=== PATIENT | male | born 1965 | race Caucasian/White ===

== ENCOUNTER 2021-03-13 10:06 | Emergency (ER) | payer OTHER, SELFPAY ==
[2021-03-13 10:10] VITALS: BP 190/90; PULSE 63; RESP 16; TEMP 36.7; O2SAT 96; BMI 35.6
[2021-03-13] MEDS: PROPARACAINE 0.5% OPHTH SOL 1 DROPS EYE-BOTH (10:40)
[2021-03-13] MEDS: FLUORESCEIN 1 MG STRIP EYE-LEFT (10:40)
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
[2021-03-13 12:03] VITALS: BP 144/86; PULSE 60; RESP 16; O2SAT 99
[2021-03-13] MEDS: OFLOXACIN 0.3% OPHTH 5 ML 1 DROPS EYE-RIGHT (12:04)
== END 2021-03-13 12:18 | disposition home or self-care (01) ==
PROVIDERS: Emergency Provider Emergency Medicine
DX: S05.01XA Injury of conjunctiva and corneal abrasion without foreign body, right eye, initial encounter (principal); W22.8XXA Striking against or struck by other objects, initial encounter
CPT/HCPCS: 99282

== ENCOUNTER 2021-06-22 10:21 | Emergency (ER) | payer OTHER, SELFPAY ==
[2021-06-22 10:48] VITALS: BP 187/94; PULSE 61; RESP 18; TEMP 36.4; O2SAT 96; BMI 37.3
[2021-06-22 11:00] VITALS: BP 161/88; PULSE 58; RESP 16; O2SAT 97
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
[2021-06-22 11:18] LABS: Add Manual Diff / Slide Review NO; Basophils Absolute Auto 100 /uL (0-100); Basophils Percent Auto 1.8 % (0-2); Eosinophils Absolute Auto 100 /uL (0-450); Eosinophils Percent Auto 2.1 % (2-4); Hematocrit 46.6 % (41-53); Hemoglobin 15.7 g/dL (13.5-17.5); Lymphocytes Absolute Auto 1600 /uL (1100-4500); Lymphocytes Percent Auto 23.3 % (25-40); Mean Corpuscular HGB Conc 33.6 % (30-36); Mean Corpuscular Hemoglobin 28.7 PG (26-34); Mean Corpuscular Volume 85.3 fL (80-100); Monocytes Absolute Auto 400 /uL (0-900); Monocytes Percent Auto 6.4 % (3-14); Neutrophils Absolute Auto 4600 /uL (1500-7000); Neutrophils Percent Auto 66.4 % (50-75); Platelet Count 196 X10^3/uL (150-400); Red Blood Cell Count 5.47 X10^6/uL (4.5-5.9); Red Cell Distribution Width 13.5 % (11.6-14.8); White Blood Cell Count 6.9 X10^3/uL (4.5-11.0)
[2021-06-22 11:25] LABS: Alanine Aminotransferase 55 IU/L (<50); Albumin 4.6 g/dL (3.5-5.0); Albumin Globulin Ratio 1.6 (1.0-2.8); Alkaline Phosphatase 82 U/L (38-126); Aspartate Aminotransferase 46 IU/L (17-59); BUN Creatinine Ratio 14.3 (6-22); Bilirubin Total 1.4 mg/dL (0.2-1.3); Blood Urea Nitrogen 10 mg/dL (9-20); Calcium 9.5 mg/dL (8.4-10.2); Carbon Dioxide 23 mmol/L (22-32); Chloride 100 mmol/L (98-107); Estimated Glomerular Filt Rate > 60.0 mL/min (>60); Globulin 2.8 g/dL (1.7-4.1); Glucose 200 mg/dL (70-100); HEMOLYSIS < 15 (0-50); Lipase 621 U/L (23-300); Potassium 4.5 mmol/L (3.4-5.1); Sodium 135 mmol/L (137-145); Total Protein 7.4 g/dL (6.3-8.2)
[2021-06-22 11:33] VITALS: BP 167/93; PULSE 62; RESP 16; O2SAT 98
--- NOTE | 2021-06-22 11:48 | DI.CT.S_ITS ---
PROCEDURE: CT ABDOMEN PELVIS WO CON INDICATIONS: right lower quad pain TECHNIQUE: Axial sections were acquired from the lung bases to the pubic symphysis. Coronal and sagittal reformats were performed. For radiation dose reduction, the following was used: automated exposure control, adjustment of mA and/or kV according to patient size. COMPARISON: None. FINDINGS: Image quality: Excellent. Lung bases: Unremarkable. Heart: No significant findings. URINARY: Right Kidney: No stones or hydronephrosis. Right Ureter: No hydroureter. Left Kidney: No stones or hydronephrosis. Left Ureter: No hydroureter. Bladder: Normal wall thickness. No stones. ABDOMEN: Liver: Diffusely hypoattenuating appearance of the liver is consistent with fatty infiltration. The liver is enlarged and measures up to 20.3 cm in craniocaudal dimension. Gallbladder: A tiny calcified gallstone is seen in the dependent portion of the gallbladder. No signs of acute cholecystitis. Biliary ducts: Unremarkable. Pancreas: Unremarkable. Spleen: Unremarkable. Adrenal Glands: Unremarkable. Stomach and Bowel: Stomach, small bowel loops, and colon are unremarkable. Normal appendix. Peritoneum: No abnormal intraperitoneal fluid. No free air. Ventral Wall: A tiny fat containing periumbilical hernia is present. Abdominal Nodes: No enlarged retroperitoneal or mesenteric lymph nodes. Vessels: Aorta and inferior vena cava are normal in size. Mild aortic atherosclerotic calcifications. PELVIS: Pelvic Organs: Unremarkable. Pelvic Nodes: Unremarkable. Miscellaneous: There is a small fat containing left inguinal hernia. Bones: Degenerative changes are seen in the hips bilaterally and there are mild degenerative changes in the lumbar spine. IMPRESSION: 1. No acute abnormality is identified in the abdomen or pelvis. Normal appendix. 2. Cholelithiasis. 3. Hepatomegaly and diffuse hepatic steatosis. 4. Small fat containing left inguinal hernia. Dictated by: Abraham Lofton M.D. on 06/22/2021 at 12:05 Approved by: Abraham Lofton M.D. on 06/22/2021 at 12:13
[2021-06-22 11:54] LABS: Bacteria Urine None Seen; Culture Indicated Urine Cult Not Indicated; RBC Urine None Seen (0-5/HPF); Squamous Epithelial Cell Urine None Seen (0-5/HPF); WBC Urine 0-1/HPF (0-5/HPF)
[2021-06-22 12:15] VITALS: BP 160/89; PULSE 60; RESP 18; O2SAT 99
[2021-06-22 13:17] VITALS: BP 153/62; PULSE 70; RESP 18; O2SAT 96
== END 2021-06-22 13:17 | disposition home or self-care (01) ==
PROVIDERS: Emergency Provider Emergency Medicine
DX: R10.31 Right lower quadrant pain (principal); R00.2 Palpitations
CPT/HCPCS: 36415; 74176; 80053; 81003; 81015; 83690; 85025; 93005; 93010; 96374; 96375; 99284; Q9967

== ENCOUNTER 2021-10-29 08:51 | Emergency (ER) | payer OTHER, SELFPAY ==
[2021-10-29 08:58] VITALS: BP 183/90; PULSE 58; RESP 12; TEMP 36.5; O2SAT 100; BMI 35.2
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
--- NOTE | 2021-10-29 11:32 | DI.CT.S_ITS ---
PROCEDURE: CT HEAD/BRAIN WO CON INDICATIONS: Left frontal/temporal concepcion x 1month, worsening TECHNIQUE: Noncontrast 4.5 mm thick angled axial sections acquired from the foramen magnum to the vertex, with coronal and sagittal reformats. For radiation dose reduction, the following was used: automated exposure control, adjustment of mA and/or kV according to patient size. COMPARISON: None. FINDINGS: Image quality: Excellent. CSF spaces: Basal cisterns are patent. No extra-axial fluid collections. The ventricles are symmetric in size and shape. Brain: No intracranial bleeds or masses. There is cerebral volume loss for age, with resultant ventricular and sulcal prominence. There are periventricular and deep white matter chronic small vessel ischemic changes. There is intracranial internal carotid artery and vertebral artery atherosclerosis. Skull and face: Calvarium and visualized facial bones appear intact, without suspicious lesions. Sinuses: Visualized sinuses and mastoids are clear. IMPRESSION: No acute intracranial disease process. Dictated by: lIiana Bill MD, PhD on 10/29/2021 at 11:54 Approved by: Iliana Bill MD, PhD on 10/29/2021 at 11:56
[2021-10-29 11:48] VITALS: BP 170/91; PULSE 54; RESP 16; O2SAT 99
[2021-10-29] MEDS: SODIUM CHLORIDE 0.9% 1,000 ML 1000 ML IV (12:00)
[2021-10-29 12:18] LABS: Add Manual Diff / Slide Review NO; Basophils Absolute Auto 100 /uL (0-100); Basophils Percent Auto 1.4 % (0-2); Eosinophils Absolute Auto 100 /uL (0-450); Hemoglobin 14.4 g/dL (13.5-17.5); Lymphocytes Absolute Auto 1500 /uL (1100-4500); Lymphocytes Percent Auto 28.9 % (25-40); Mean Corpuscular HGB Conc 34.4 % (30-36); Mean Corpuscular Hemoglobin 28.8 PG (26-34); Mean Corpuscular Volume 83.9 fL (80-100); Monocytes Absolute Auto 400 /uL (0-900); Monocytes Percent Auto 8.6 % (3-14); Neutrophils Absolute Auto 3000 /uL (1500-7000); Neutrophils Percent Auto 59.1 % (50-75); Platelet Count 158 X10^3/uL (150-400); Red Cell Distribution Width 13.4 % (11.6-14.8); White Blood Cell Count 5.1 X10^3/uL (4.5-11.0)
[2021-10-29 12:30] LABS: Alanine Aminotransferase 46 IU/L (<50); Albumin 4.1 g/dL (3.5-5.0); Albumin Globulin Ratio 1.5 (1.0-2.8); Alkaline Phosphatase 75 U/L (38-126); Aspartate Aminotransferase 38 IU/L (17-59); BUN Creatinine Ratio 13.4 (6-22); Bilirubin Total 1.1 mg/dL (0.2-1.3); Blood Urea Nitrogen 9 mg/dL (9-20); Calcium 9.2 mg/dL (8.4-10.2); Carbon Dioxide 28 mmol/L (22-32); Chloride 103 mmol/L (98-107); Estimated Glomerular Filt Rate > 60.0 mL/min (>60); Globulin 2.7 g/dL (1.7-4.1); Glucose 206 mg/dL (70-100); HEMOLYSIS 17 (0-50); Potassium 4.5 mmol/L (3.4-5.1); Sodium 136 mmol/L (137-145); Total Protein 6.8 g/dL (6.3-8.2)
[2021-10-29 12:32] LABS: C-Reactive Protein Quant < 0.5 mg/dL (<1.0)
[2021-10-29 12:37] LABS: Erythrocyte Sedimentation Rate 32 MM/HR (0-15)
[2021-10-29 13:06] VITALS: O2SAT 98
[2021-10-29 13:07] VITALS: BP 168/92; O2SAT 99
[2021-10-29 14:18] VITALS: BP 183/92
[2021-10-29 14:19] VITALS: PULSE 53; RESP 16; O2SAT 95
--- NOTE | 2021-11-13 13:26 | PC.NURSE ---
pt called asking for us to extend his prednisone prescription. I let him know we don't usually do refills had he tried to call the surgeon he had just seen or his pcp. said he can't be seen by his pcp for 2 days and coming off this high dose i'm really fucked up and you're no help and then he hung up on me. I will notify dr. ramos.
--- NOTE | 2021-11-13 14:32 | PC.NURSE ---
Dr ramos was able to review the chart and sent a prescription of prednisone to the [facility].
== END 2021-10-29 14:28 | disposition home or self-care (01) ==
PROVIDERS: Emergency Provider Emergency Medicine
DX: R51.9 Headache, unspecified (principal); M31.6 Other giant cell arteritis
CPT/HCPCS: 36415; 70450; 80053; 81003; 85025; 85651; 86140; 96360; 99284

== ENCOUNTER 2022-04-08 05:29 | Emergency (ER) | payer OTHER, SELFPAY ==
[2022-04-08] VITALS (9 sets, daily range): BP systolic 165–215; BP diastolic 74–106; PULSE 46–53; RESP 18–20; TEMP 36.2; O2SAT 98–99; BMI 37.2
[2022-04-08 06:43] LABS: Add Manual Diff / Slide Review NO; Basophils Absolute Auto 0 /uL (0-100); Basophils Percent Auto 0.8 % (0-2); Eosinophils Absolute Auto 200 /uL (0-450); Eosinophils Percent Auto 3.8 % (2-4); Hematocrit 40.8 % (41-53); Hemoglobin 13.8 g/dL (13.5-17.5); Lymphocytes Absolute Auto 1800 /uL (1100-4500); Lymphocytes Percent Auto 29.8 % (25-40); Mean Corpuscular HGB Conc 33.7 % (30-36); Monocytes Absolute Auto 500 /uL (0-900); Monocytes Percent Auto 8.3 % (3-14); Neutrophils Absolute Auto 3400 /uL (1500-7000); Neutrophils Percent Auto 57.3 % (50-75); Platelet Count 177 X10^3/uL (150-400); Red Blood Cell Count 4.74 X10^6/uL (4.5-5.9); Red Cell Distribution Width 13.4 % (11.6-14.8)
[2022-04-08 06:49] LABS: Alanine Aminotransferase 28 IU/L (<50); Albumin Globulin Ratio 1.4 (1.0-2.8); Alkaline Phosphatase 69 U/L (38-126); Aspartate Aminotransferase 24 IU/L (17-59); BUN Creatinine Ratio 10.8 (6-22); Blood Urea Nitrogen 8 mg/dL (9-20); Calcium 8.9 mg/dL (8.4-10.2); Carbon Dioxide 25 mmol/L (22-32); Chloride 105 mmol/L (98-107); Estimated Glomerular Filt Rate > 60 mL/min (>60); Globulin 2.8 g/dL (1.7-4.1); Glucose 195 mg/dL (70-100); HEMOLYSIS < 15 (0-50); Lipase 1328 U/L (23-300); Potassium 3.9 mmol/L (3.4-5.1); Sodium 138 mmol/L (137-145); Total Protein 6.8 g/dL (6.3-8.2)
--- NOTE | 2022-04-08 06:53 | DI.CT.S_ITS ---
PROCEDURE: CT ABDOMEN PELVIS WO CON INDICATIONS: Right flank pain, pancreatitis TECHNIQUE: Axial sections were acquired from the lung bases to the pubic symphysis. Coronal and sagittal reformats were performed. For radiation dose reduction, the following was used: automated exposure control, adjustment of mA and/or kV according to patient size. COMPARISON: [facility], CT, CT ABDOMEN PELVIS WO CON, 06/22/2021, 11:50. FINDINGS: Image quality: Excellent. Lung bases: Lung bases are clear. Small hiatal hernia. Heart: Heart size is normal. Moderate coronary artery calcification. URINARY: Right Kidney: No stones or hydronephrosis. Mild nonspecific perinephric stranding. Right Ureter: No hydroureter. Left Kidney: No stones or hydronephrosis. Mild non-specific perinephric stranding. Left Ureter: No hydroureter. Bladder: Normal wall thickness. No stones. ABDOMEN: Liver: Liver is enlarged. There is moderate hepatic steatosis. Gallbladder: There are gallstone. Gallbladder is mildly distended. No pericholecystic fluid collection. Biliary ducts: Unremarkable. Pancreas: Unremarkable. No pancreatic stranding, pancreatic duct dilation, pancreatic stranding or pseudocysts. Spleen: Unremarkable. Adrenal Glands: Unremarkable. Stomach and Bowel: Stomach, small bowel loops, and colon are normal in caliber. Appendix is normal. Moderate amount of stool in colon. Diverticulosis without diverticulitis. Peritoneum: No abnormal intraperitoneal fluid. No free air. Ventral Wall: No hernia. Abdominal Nodes: No enlarged retroperitoneal or mesenteric lymph nodes. Mesenteric stranding. Vessels: Aorta and inferior vena cava are normal in size. PELVIS: Pelvic Organs: Unremarkable. Pelvic Nodes: Unremarkable. Miscellaneous: Small fat containing left inguinal. Bones: Unremarkable. IMPRESSION: 1. No renal stone or hydronephrosis. 2. Cholelithiasis. 3. Hepatomegaly and hepatic steatosis. 4. Normal CT appearance of pancreas, which does not exclude clinical pancreatitis. 5. Diverticulosis without diverticulitis. Dictated by: Derrick Hernandez M.D. on 04/08/2022 at 8:26 Approved by: Derrick Hernandez M.D. on 04/08/2022 at 8:48
--- NOTE | 2022-04-08 07:01 | ED.BACK ---
HPI - Back Pain/Injury <DO Xochitl Saini Last Filed: 04/12/22 06:54> General Chief Complaint: Back Pain/Injury Stated Complaint: right back side Time Seen by Provider: 04/08/22 07:06 Source: patient History of Present Illness HPI Narrative: Patient is a 56-year-old male with history of type 2 diabetes presenting with right upper quadrant pain. This with ongoing for the last 6 weeks. He said it started when he was patient between 2 things however it has continued he has been taking Tylenol and ibuprofen at home which has been working in till last night. Patient thinks it might be his gallbladder. He has not had any nausea or vomiting. He went to the walk-in clinic last week and was told it could possibly be his gallbladder. Related Data Home Medications Medication Instructions Recorded Confirmed metformin 500 mg tablet,extended 500 mg PO 06/22/21 03/25/22 release 24 hr Previous Rx's Medication Instructions Recorded prednisone 20 mg tablet 60 mg PO DAILY #42 tabs 10/29/21 prednisone 20 mg tablet 40 mg PO DAILY #14 tabs 11/13/21 prednisone 50 mg tablet 50 mg PO DAILY #7 tabs 11/13/21 Allergies Allergy/AdvReac Type Severity Reaction Status Date / Time aspirin Allergy Severe Anaphylaxis Verified 04/08/22 05:49 Iodinated Contrast Media Allergy Severe Fever Verified 04/08/22 05:49 tetanus and diphtheria AdvReac Severe Fever Verified 04/08/22 05:49 toxoids Review of Systems <DO Xochitl Saini Filed: 04/12/22 06:54> Review of Systems Narrative: GENERAL: Denies chills, fatigue, malaise, fever, sweats, travel HEENT: Denies sinus pain, ear pain, sore throat, difficulty swallowing, neck pain RESPIRATORY: Denies dyspnea, cough, wheezing, hemoptysis, sputum. CARDIOVASCULAR: Denies chest pain, palpitations, orthopnea, edema GASTROINTESTINAL: See HPI : Denies dysuria, frequency, incontinence, hematuria, urinary retention, flank pain. MUSCULOSKELETAL: Denies weakness, joint pain, or bony pain SKIN: No rash, no erythema, no pruritus NEUROLOGIC: Denies weakness, dizziness, headache, numbness, change in speech, confusion PSYCHIATRIC: No concerning psychosocial issues. 12 point review of systems is negative except for those stated above and HPI Patient History <DO Xochitl Saini Last Filed: 04/12/22 06:54> Social History Smoking Status: Never smoker Smoking Status: Never smoker alcohol intake frequency: holidays/special occasions only Substance Use Type: does not use Exam <DO Xochitl Saini Last Filed: 04/12/22 06:54> Initial Vital Signs Initial Vital Signs: Vital Signs Temperature 97.2 F L 04/08/22 05:43 Pulse Rate 50 L 04/08/22 05:43 Respiratory Rate 20 04/08/22 05:43 Blood Pressure 195/95 H 04/08/22 05:43 Pulse Oximetry 99 04/08/22 05:43 Oxygen Delivery Method 04/08/22 05:43 GENERAL: Well-appearing 56 year old male HEENT: Head atraumatic,EOMI, pupils reactive, face symmetric, moist mucous membranes CARDIOVASCULAR: Regular rate and rhythm without murmurs, rubs or gallops. RESPIRATORY: Breath sounds equal bilaterally, no wheezes rales or rhonchi. ABDOMEN: Soft, mild right upper quadrant pain no vertigo no rebound mild epigastric EXTREMITIES: Normal range of motion, no clubbing or edema. Neurovascularly intact NEUROLOGICAL: Alert and oriented x4.Normal gait and speech. SKIN: Warm, dry, no laceration, no petechiae, no rashes or lesions. <Maude Lopez DO - Last Filed: 04/12/22 08:23> Initial Vital Signs Initial Vital Signs: Vital Signs Temperature 97.2 F L 04/08/22 05:43 Pulse Rate 50 L 04/08/22 05:43 Respiratory Rate 20 04/08/22 05:43 Blood Pressure 195/95 H 04/08/22 05:43 Pulse Oximetry 99 04/08/22 05:43 Oxygen Delivery Method 04/08/22 05:43 Course <DO Xochitl Saini Last Filed: 04/12/22 06:54> Orders Ordered: ED Orders 04/08/22 05:52 EKG-12 Lead Stat 04/08/22 06:00 Complete Blood Count AUTO DIFF Stat Comprehensive Metabolic Panel Stat Lipase Stat Troponin & CK Cardiac Panel Stat 04/08/22 06:53 CT abdomen pelvis wo con Stat Vital Signs Vital signs: Vital Signs - 8 hr 04/08/22 05:43 04/08/22 06:37 04/08/22 06:38 Temperature 97.2 F L Pulse Rate 50 L 46 L 46 L Respiratory Rate 20 Blood Pressure 195/95 H Pulse Oximetry 99 98 98 Oxygen Delivery Method Room Air 04/08/22 06:38 04/08/22 07:00 04/08/22 07:01 Temperature Pulse Rate 50 L 49 L Respiratory Rate Blood Pressure 184/88 H Pulse Oximetry 98 99 Oxygen Delivery Method 04/08/22 07:01 04/08/22 07:16 04/08/22 07:16 Temperature Pulse Rate 49 L Respiratory Rate Blood Pressure 215/106 H 176/83 H Pulse Oximetry 99 Oxygen Delivery Method 04/08/22 07:30 04/08/22 07:30 04/08/22 08:00 Temperature Pulse Rate 52 L Respiratory Rate Blood Pressure 175/90 H 185/81 H Pulse Oximetry 98 Oxygen Delivery Method 04/08/22 08:00 04/08/22 10:02 Temperature Pulse Rate 53 L 51 L Respiratory Rate 18 Blood Pressure 165/74 H Pulse Oximetry 98 99 Oxygen Delivery Method Room Air <Maude Lopez, DO - Last Filed: 04/12/22 08:23> Orders Ordered: ED Orders 04/08/22 05:52 EKG-12 Lead Stat 04/08/22 06:00 Complete Blood Count AUTO DIFF Stat Comprehensive Metabolic Panel Stat Lipase Stat Troponin & CK Cardiac Panel Stat 04/08/22 06:53 CT abdomen pelvis wo con Stat Consultations Consultation #1: Dr. Cordova, general surgery. Case was reviewed. Labs and findings. Time: 11:50 Vital Signs Vital signs: Vital Signs - 8 hr 04/08/22 05:43 04/08/22 06:37 04/08/22 06:38 Temperature 97.2 F L Pulse Rate 50 L 46 L 46 L Respiratory Rate 20 Blood Pressure 195/95 H Pulse Oximetry 99 98 98 Oxygen Delivery Method Room Air 04/08/22 06:38 04/08/22 07:00 04/08/22 07:01 Temperature Pulse Rate 50 L 49 L Respiratory Rate Blood Pressure 184/88 H Pulse Oximetry 98 99 Oxygen Delivery Method 04/08/22 07:01 04/08/22 07:16 04/08/22 07:16 Temperature Pulse Rate 49 L Respiratory Rate Blood Pressure 215/106 H 176/83 H Pulse Oximetry 99 Oxygen Delivery Method 04/08/22 07:30 04/08/22 07:30 04/08/22 08:00 Temperature Pulse Rate 52 L Respiratory Rate Blood Pressure 175/90 H 185/81 H Pulse Oximetry 98 Oxygen Delivery Method 04/08/22 08:00 04/08/22 10:02 Temperature Pulse Rate 53 L 51 L Respiratory Rate 18 Blood Pressure 165/74 H Pulse Oximetry 98 99 Oxygen Delivery Method Room Air MDM - Back Pain/Injury <Lakeisha Giraldo, DO - Last Filed: 04/12/22 06:54> Lab Data Result diagrams: 04/08/22 06:00 04/08/22 06:00 Labs: Lab Results 04/08/22 04/08/22 04/08/22 Range/Units 06:00 06:00 06:00 WBC 6.0 (4.5-11.0) X10^3/uL RBC 4.74 (4.5-5.9) X10^6/uL Hgb 13.8 (13.5-17.5) g/dL Hct 40.8 L (41-53) % MCV 86.0 (80-100) fL MCH 29.0 (26-34) PG MCHC 33.7 (30-36) % RDW 13.4 (11.6-14.8) % Plt Count 177 (150-400) X10^3/uL Neut % (Auto) 57.3 (50-75) % Lymph % (Auto) 29.8 (25-40) % Chaves % (Auto) 8.3 (3-14) % Eos % (Auto) 3.8 (2-4) % Baso % (Auto) 0.8 (0-2) % Neut # (Auto) 3400 (1109-4392) /uL Lymph # (Auto) 1800 (7180-8348) /uL Chaves # (Auto) 500 (0-900) /uL Eos # (Auto) 200 (0-450) /uL Baso # (Auto) 0 (0-100) /uL Sodium 138 (137-145) mmol/L Potassium 3.9 (3.4-5.1) mmol/L Chloride 105 (98-107) mmol/L Carbon Dioxide 25 (22-32) mmol/L BUN 8 L (9-20) mg/dL Creatinine 0.74 (0.66-1.25) mg/dL Estimated GFR > 60 (>60) mL/min BUN/Creatinine Ratio 10.8 (6-22) Glucose 195 H (70-100) mg/dL Calcium 8.9 (8.4-10.2) mg/dL Total Bilirubin 1.0 (0.2-1.3) mg/dL AST 24 (17-59) IU/L ALT 28 (<50) IU/L Alkaline Phosphatase 69 (38-126) U/L Total Creatine Kinase 94 (55-170) U/L CK-MB (CK-2) TNP CK-MB (CK-2) Rel Index TNP Troponin I < 0.012 (0.01-0.034) ng/mL Total Protein 6.8 (6.3-8.2) g/dL Albumin 4.0 (3.5-5.0) g/dL Globulin 2.8 (1.7-4.1) g/dL Albumin/Globulin Ratio 1.4 (1.0-2.8) Lipase 1328 H (23-300) U/L Urine Dip Bedside Urine Glucose Negative Bedside Urine Bilirubin - Negative Bedside Urine Ketone - Negative Urine Specific [place] 1.015 Bedside Urine Occult Blood - Negative Bedside Urine pH 6.0 Bedside Urine Protein - Negative Bedside Urine Urobilinogen - Negative Bedside Urine Nitrite - Negative Bedside Urine Leukocytes - Negative Esterase ECG Data Interpretation: Normal sinus rhythm rate 47 ND interval 156/[address] changes no T-wave inversions <Maude Lopez, - Last Filed: 04/12/22 08:23> Lab Data Labs: Lab Results 04/08/22 04/08/22 04/08/22 Range/Units 06:00 06:00 06:00 WBC 6.0 (4.5-11.0) X10^3/uL RBC 4.74 (4.5-5.9) X10^6/uL Hgb 13.8 (13.5-17.5) g/dL Hct 40.8 L (41-53) % MCV 86.0 (80-100) fL MCH 29.0 (26-34) PG MCHC 33.7 (30-36) % RDW 13.4 (11.6-14.8) % Plt Count 177 (150-400) X10^3/uL Neut % (Auto) 57.3 (50-75) % Lymph % (Auto) 29.8 (25-40) % Chaves % (Auto) 8.3 (3-14) % Eos % (Auto) 3.8 (2-4) % Baso % (Auto) 0.8 (0-2) % Neut # (Auto) 3400 (7242-4266) /uL Lymph # (Auto) 1800 (3281-6620) /uL Chaves # (Auto) 500 (0-900) /uL Eos # (Auto) 200 (0-450) /uL Baso # (Auto) 0 (0-100) /uL Sodium 138 (137-145) mmol/L Potassium 3.9 (3.4-5.1) mmol/L Chloride 105 (98-107) mmol/L Carbon Dioxide 25 (22-32) mmol/L BUN 8 L (9-20) mg/dL Creatinine 0.74 (0.66-1.25) mg/dL Estimated GFR > 60 (>60) mL/min BUN/Creatinine Ratio 10.8 (6-22) Glucose 195 H (70-100) mg/dL Calcium 8.9 (8.4-10.2) mg/dL Total Bilirubin 1.0 (0.2-1.3) mg/dL AST 24 (17-59) IU/L ALT 28 (<50) IU/L Alkaline Phosphatase 69 (38-126) U/L Total Creatine Kinase 94 (55-170) U/L CK-MB (CK-2) TNP CK-MB (CK-2) Rel Index TNP Troponin I < 0.012 (0.01-0.034) ng/mL Total Protein 6.8 (6.3-8.2) g/dL Albumin 4.0 (3.5-5.0) g/dL Globulin 2.8 (1.7-4.1) g/dL Albumin/Globulin Ratio 1.4 (1.0-2.8) Lipase 1328 H (23-300) U/L Urine Dip Bedside Urine Glucose Negative Bedside Urine Bilirubin - Negative Bedside Urine Ketone - Negative Urine Specific [place] 1.015 Bedside Urine Occult Blood - Negative Bedside Urine pH 6.0 Bedside Urine Protein - Negative Bedside Urine Urobilinogen - Negative Bedside Urine Nitrite - Negative Bedside Urine Leukocytes - Negative Esterase Imaging Data CT scan - abdomen/pelvis: Radiologist's Impression: Close Abdomen/Pelvis CT (Signed) Yolanda Hernandezcelia - 04/08/22 Launch?Image [address] [address] [address] Scan Report Signed Patient: Jean Mendez MR#: [id number] : 1965 Acct:[id number] Age/Sex: 56 / M Date of Service: 04/08/22 Loc: ED Accession Number: [id number] ?? Procedure: CT abdomen pelvis wo con Ordering Provider: Lakeisha Giraldo D.O. PROCEDURE:? CT ABDOMEN PELVIS WO CON ? INDICATIONS:? Right flank pain, pancreatitis ? TECHNIQUE:? Axial sections were acquired from the lung bases to the pubic symphysis.? Coronal and sagittal reformats were performed.? For radiation dose reduction, the following was used: ?automated exposure control, adjustment of mA and/or kV according to patient size.? ? COMPARISON:? [facility], CT, CT ABDOMEN PELVIS WO CON, 06/22/2021, 11:50. ? FINDINGS:? Image quality:? Excellent.? ? Lung bases:? Lung bases are clear.? Small hiatal hernia. Heart:? Heart size is normal.? Moderate coronary artery calcification. ? URINARY: Right Kidney: ? No stones or hydronephrosis.? Mild nonspecific perinephric stranding. Right Ureter:? No hydroureter.? ? Left Kidney: ? No stones or hydronephrosis.? Mild non-specific perinephric stranding. Left Ureter:? No hydroureter.? ? Bladder:? Normal wall thickness. No stones. ? ? ? ABDOMEN: Liver:? Liver is enlarged.? There is moderate hepatic steatosis.? ? Gallbladder:? There are gallstone.? Gallbladder is mildly distended.? No pericholecystic fluid collection.? ? Biliary ducts:? Unremarkable.? ? Pancreas:? Unremarkable.? No pancreatic stranding, pancreatic duct dilation, pancreatic stranding or pseudocysts. Spleen:? Unremarkable.? ? Adrenal Glands:? Unremarkable.? ? ? Stomach and Bowel:? Stomach, small bowel loops, and colon are normal in caliber.? Appendix is normal.? Moderate amount of stool in colon.? Diverticulosis without diverticulitis. Peritoneum:? No abnormal intraperitoneal fluid.? No free air.? ? Ventral Wall: ? No hernia.? Abdominal Nodes:? No enlarged retroperitoneal or mesenteric lymph nodes.? Mesenteric stranding.? Vessels:? Aorta and inferior vena cava are normal in size.? ? PELVIS: Pelvic Organs:? Unremarkable.? ? Pelvic Nodes: Unremarkable. Miscellaneous:? Small fat containing left inguinal. ? ? ? Bones:? Unremarkable. ? IMPRESSION:? ? 1. No renal stone or hydronephrosis. 2. Cholelithiasis. 3. Hepatomegaly and hepatic steatosis. 4. Normal CT appearance of pancreas, which does not exclude clinical pancreatitis. 5. Diverticulosis without diverticulitis. ? ? ? Dictated by: Derrick Hernandez M.D. on 04/08/2022 at 8:26 ? ? Approved by: Derrick Hernandez M.D. on 04/08/2022 at 8:48?? MDM Narrative Medical decision making narrative: Jessica 04/08/22: Patient seen independently evaluated by myself. Signed out to myself by Dr. Giraldo. Labs show an elevated lipase, no significant changes to other LFTs. CBC and electrolytes otherwise normal, troponin negative. CT abdomen pelvis shows cholelithiasis, moderate distention, no other changes no pancreatic changes. Patient is tender in the right upper quadrant but also said he has significant pain with movement on exam. No bony tenderness on exam. He is eating and drinking without issue. Discussed with General surgery for outpatient follow-up he may have some musculoskeletal component on top of his gallbladder issues. No signs of sepsis. Spoke with Dr. Cordova who is happy to see the patient as outpatient. Reviewed all of his findings from today and patient exam findings. Discharge Plan Departure Patient Disposition: Home Clinical Impression: Pancreatitis, Cholelithiasis Instructions: DI for Pancreatitis Activity Restrictions/Additional Instructions: Please follow-up with General surgery for recheck and potentially to have your gallbladder removed. Please call to set up an appointment, referral is included below. You do have a gallstone today on your imaging, no other signs of infection but this can cause pain. Your lipase is also somewhat elevated but there are no obvious changes to the ducts that drain the gallbladder and pancreas. Please return for fevers increasing abdominal, back or flank pain, persistent vomiting, black or bloody stools or other new or concerning symptoms. Prescriptions: No Action metformin 500 mg tablet extended release 24 hr 500 mg PO Label Comments: TAKE 2 TABLETS BY MOUTH TWICE DAILY prednisone 20 mg tablet 60 mg PO DAILY Qty: 42 0RF prednisone 20 mg tablet 40 mg PO DAILY Qty: 14 0RF Rx Instructions: start AFTER the 50mg once daily for 1 week. prednisone 50 mg tablet 50 mg PO DAILY Qty: 7 0RF Rx Instructions: Take 50mg once a day for 1 week, then 40mg once a day for 1 week. then see pcp Referrals: José Luis Cordova MD [Physician] - Visit Report Forms: Patient Portal/API
[2022-04-08 07:21] LABS: Creatine Kinase 94 U/L (55-170)
[2022-04-08 07:34] LABS: Troponin I < 0.012 ng/mL (0.01-0.034)
--- NOTE | 2022-04-08 10:13 | PC.NURSE ---
Attemped to discharge pt but pt had more questions, requesting MD to come back and answer prior to discharge.
== END 2022-04-08 10:16 | disposition home or self-care (01) ==
PROVIDERS: Emergency Medicine; Emergency Provider Emergency Medicine
DX: K85.90 Acute pancreatitis without necrosis or infection, unspecified (principal); K80.20 Calculus of gallbladder without cholecystitis without obstruction
CPT/HCPCS: 36415; 74176; 80053; 81003; 82550; 83690; 84484; 85025; 93005; 93010; 99283; 99284

== ENCOUNTER → 2022-04-30 13:59 | Outpatient (CLI) | payer OTHER, SELFPAY ==
--- NOTE | 2022-04-30 14:00 | DI.US.S_ITS ---
PROCEDURE: US ABDOMEN LIMITED INDICATIONS: Gallstones TECHNIQUE: Real-time focused scanning was performed of the abdomen, with image documentation. COMPARISON: None. FINDINGS: Moderate to severe hepatic steatosis. Normally distended gallbladder with a few small mobile gallstones. No gallbladder wall thickening or pericholecystic fluid. Nondilated intrahepatic and extrahepatic biliary ducts. Pancreas obscured by bowel gas. IMPRESSION: Limited exam due to body habitus and severe steatosis. Small mobile gallstones with no findings of cholecystitis. Dictated by: Rome Campuzano M.D. on 04/30/2022 at 16:05 Approved by: Rome Campuzano M.D. on 04/30/2022 at 16:06
== END ==
PROVIDERS: PCP Physician Assistant; Referring Provider Surgery; Visit Provider Surgery
DX: K85.10 Biliary acute pancreatitis without necrosis or infection (principal); K80.20 Calculus of gallbladder without cholecystitis without obstruction; K76.0 Fatty (change of) liver, not elsewhere classified
CPT/HCPCS: 76705

== ENCOUNTER → 2022-05-13 09:33 | Outpatient (CLI) | payer OTHER, SELFPAY ==
[2022-05-13 12:51] LABS: COVID19 -Nasal RAPID Negative (Negative)
== END ==
PROVIDERS: PCP Physician Assistant; Visit Provider Surgery
DX: Z01.812 Encounter for preprocedural laboratory examination (principal); Z20.822 Contact with and (suspected) exposure to COVID-19
CPT/HCPCS: 87635; C9803

== ENCOUNTER 2022-05-14 13:23 | Observation (INO) | payer OTHER, SELFPAY ==
[2022-05-13 14:17] VITALS: BMI 35.9
[2022-05-14] VITALS (11 sets, daily range): BP systolic 121–176; BP diastolic 64–89; PULSE 57–82; RESP 14–155; TEMP 36.1–36.6; O2SAT 90–99; BMI 35.9
--- NOTE | 2022-05-14 | PATH_ITS ---
[facility] Accession Number: [id number] . 01 Material submitted: . gallbladder - GALLBLADDER . 01 Diagnosis: Gallbladder, Cholecystectomy: Gallbladder with cholesterolosis and benign cholesterol polyps. [facility] 05/16/2022 1520 Local . 01 Electronically signed: . Marina Justice MD, Pathologist NPI- [id number] . 01 Gross description: . Received in formalin labeled with the patient's name and gallbladder consists of an intact gallbladder measuring 9.5 x 2.9 x 1.9 cm. The serosa is mcbride and smooth while the hepatic surface is rough and unremarkable. The cystic duct is received closed with a clamp, is inked blue, and no pericystic lymph node is identified. Opening the specimen reveals a small amount of green-brown viscous bile with no calculi identified in the lumen or the container. The mucosa is mcbride-brown and velvety with multiple yellow polypoid structures measuring up to 0.4 cm in greatest dimension. No pinpoint yellow discoloration or lesions are identified, and the gurrola average 0.3 cm thick. [employer]ter [employer] sections to include the cystic duct margin and full-thickness sections are submitted in cassette A1. ([id number]) /MRV 05/15/2022 1024 Local . 01 Pathologist provided ICD-10: K80.20, K81.9 . 01 CPT . 921461 Specimen Comment: A courtesy copy of this report has been sent to [phone] Performed at: 01 [facility] [address] [place] [address], [place], [place] [id number] MD Emmanuel William MD Phone: [phone]
[2022-05-14] MEDS: LACTATED RINGERS 1,000 ML 42 ML IV ×2 (14:05→16:51)
[2022-05-14] MEDS: ACETAMINOPHEN 325 MG TABLET 975 MG PO (14:08)
--- NOTE | 2022-05-14 15:05 | PM.PREOP ---
Pre-operative Note COVID-19 COVID-19 status: Negative Result date/Date tested (Pos, Neg/Pending): 05/13/22 Interval Note History & Physical reviewed/Exam performed by Physician: Yes Changes to H&P: No H&P completed within 30 days and has changed as indicated here:: We discussed performing an intraoperative cholangiogram to rule out common bile duct stones since he has had gallstone pancreatitis in the past ASA Class (for procedural sedation): III
[2022-05-14] MEDS: CEFAZOLIN 2 GM/100 ML PREMIX 100 ML IV (15:31)
[2022-05-14] MEDS: HYDRALAZINE 20 MG/ML VIAL 10 MG IV (16:08)
[2022-05-14] MEDS: BUPIVACAINE 0.5% W/ EPI (PF) 30 ML VIAL INJ (16:10)
[2022-05-14] MEDS: IOPAMIDOL 50 ML VIAL INJ (16:14)
--- NOTE | 2022-05-14 16:16 | SUR.OPER ---
Supine on padded OR bed, head on pillow, safety belt at thigh, bilateral arms secured on padded arm board <90 degrees abduction. Legs uncrossed. Padded footboard in place. Tape over blanket to secure lower legs.
--- NOTE | 2022-05-14 17:16 | DI.RAD.S_ITS ---
PROCEDURE: XR CHOLANGIOGRAM OPERATIVE INDICATIONS: Intraoperative cholangiogram. COMPARISON: None. FINDINGS: Biliary ducts: The surgeon injected contrast into the biliary ducts after cannulation of the cystic duct stump. Visualized intra- and extrahepatic bile ducts are normal in caliber, without strictures. No intraluminal filling defects to suggest retained ductal stones or sludge. No evidence for iatrogenic ductal injury. Duodenum: Contrast flows promptly through the sphincter of Oddi into the duodenum, which appears normal in caliber. IMPRESSION: Normal intraoperative cholangiogram. Dictated by: Angel Rivas M.D. on 05/14/2022 at 17:22 Approved by: Angel Rivas M.D. on 05/14/2022 at 17:23
--- NOTE | 2022-05-14 20:04 | SUR.PHASEI ---
Late entry: 1930: This RN transported pt for primary RN. Pt A&Ox4 and denies any distress. Handoff to receiving RN.
[2022-05-14] MEDS: ACETAMINOPHEN 325 MG TABLET 650 MG PO (20:36)
[2022-05-14] MEDS: ACETAMINOPHEN 325 MG TABLET PO (21:51)
[2022-05-14] MEDS: predniSONE 5 MG TABLET 10 MG PO (23:41)
[2022-05-14] MEDS: METFORMIN HCL 500 MG TABLET 1000 MG PO (23:41)
[2022-05-14] MEDS: IBUPROFEN 600 MG TABLET PO (23:42)
[2022-05-14] MEDS: OXYMETAZOLINE NASAL SPRAY 15 ML 2 SPRAYS NASAL (23:46)
[2022-05-15] VITALS: BP 148/72; PULSE 76; RESP 17; TEMP 36.4; O2SAT 96
[2022-05-15 04:00] VITALS: BP 149/72; PULSE 77; RESP 16; TEMP 36.4; O2SAT 97
--- NOTE | 2022-05-15 05:19 | PC.NURSE ---
End of shift report. Care of patient from . Patient AAOX4, good pain control with tylenol 950mg po X1 and Advil 600mg po X1. Up to BR independent voiding, had a BM. Ate 1/2 [place] sandwich, 3 sugar free puddings and 2 string cheeses for dinner. Anticipate will discharge home today with .
[2022-05-15 05:28] LABS: Add Manual Diff / Slide Review NO; Basophils Absolute Auto 0 /uL (0-100); Basophils Percent Auto 0.3 % (0-2); Eosinophils Absolute Auto 0 /uL (0-450); Hematocrit 39.6 % (41-53); Hemoglobin 13.7 g/dL (13.5-17.5); Lymphocytes Absolute Auto 700 /uL (1100-4500); Lymphocytes Percent Auto 6.8 % (25-40); Mean Corpuscular HGB Conc 34.7 % (30-36); Mean Corpuscular Hemoglobin 29.3 PG (26-34); Mean Corpuscular Volume 84.5 fL (80-100); Monocytes Absolute Auto 400 /uL (0-900); Monocytes Percent Auto 3.8 % (3-14); Neutrophils Absolute Auto 9200 /uL (1500-7000); Neutrophils Percent Auto 89.1 % (50-75); Platelet Count 162 X10^3/uL (150-400); Red Blood Cell Count 4.69 X10^6/uL (4.5-5.9); Red Cell Distribution Width 13.5 % (11.6-14.8); White Blood Cell Count 10.3 X10^3/uL (4.5-11.0)
[2022-05-15] MEDS: ACETAMINOPHEN 325 MG TABLET 975 MG PO (05:36)
[2022-05-15 05:43] LABS: Alanine Aminotransferase 113 IU/L (<50); Albumin 3.8 g/dL (3.5-5.0); Albumin Globulin Ratio 1.5 (1.0-2.8); Alkaline Phosphatase 52 U/L (38-126); Aspartate Aminotransferase 127 IU/L (17-59); BUN Creatinine Ratio 18.5 (6-22); Bilirubin Total 1.5 mg/dL (0.2-1.3); Blood Urea Nitrogen 12 mg/dL (9-20); Carbon Dioxide 23 mmol/L (22-32); Chloride 103 mmol/L (98-107); Estimated Glomerular Filt Rate > 60 mL/min (>60); Globulin 2.6 g/dL (1.7-4.1); Glucose 236 mg/dL (70-100); HEMOLYSIS < 15 (0-50); Lipase 324 U/L (23-300); Potassium 4.1 mmol/L (3.4-5.1); Sodium 135 mmol/L (137-145); Total Protein 6.4 g/dL (6.3-8.2)
[2022-05-15 08:00] VITALS: BP 158/77; PULSE 57; RESP 16; TEMP 37.1; O2SAT 97
[2022-05-15] MEDS: METFORMIN HCL 500 MG TABLET 1000 MG PO (08:43)
[2022-05-15] MEDS: predniSONE 5 MG TABLET 10 MG PO (08:43)
[2022-05-15] MEDS: IBUPROFEN 600 MG TABLET PO (08:43)
--- NOTE | 2022-05-15 14:35 | CM.DANOTE ---
Patient is a 56 yo male who was admitted on 05/14/22 for Lap Ree. Pt has PRE DIM for insurance and his PCP is Luis Bustos. EMR was reviewed. Per Surgeon, pt tolerated cholangiogram to r/o bile duct stones. Per RN, pt has good pain control, independent with voiding, had bm, tolerating diet. Per Surgeon, pt medically stable to d/c home today via POV and outpt f/u and no identified barriers to discharge. Due to triage needs no bedside assessment completed as no d/c needs identified and pt discharged this morning prior to SW able to meet bedside. Plan: Patient discharged home today via spouse POV and independent at baseline and no SW needs identified. [place] Discharge Planning/Care Management Pre-Anesthesia Assessment Start: 05/09/22 08:02 Freq: Status: Discharge Protocol: Document 05/13/22 14:17 CAB (Rec: 05/09/22 08:32 CAB [id number]) Pre-Anesthesia Assessment Patient Information Reviewed Via Chart Review Comment COVID screen @ [facility] 05/13/22 Negative Primary Care Provider Luis Bustos Seen Specialist in Last 12 Months Yes Specialist Seen Emergency,General surgeon, Other Primary Language Israeli Bottom Buffer Required No Height 185.42 cm Weight 123.377 kg Body Mass Index (BMI) 35.9 Hearing Ability Normal Visual Impairment No Limitations Visual Assist None Dentition Type Teeth, Natural Present Barriers to Learning None Hx Anesthesia Reactions No Hx Family Anesthesia Reaction Yes: Daughter slow to wake up Hx Malignant Hyperthermia No Hx Blood Transfusions No Anesthesia Review Requested No Pet Feeder No alcohol intake never Smoking Status Never smoker Substance Use Type does not use Pain Present Pain Reported Comment RUQ History of Falling (Recent or History of No ) Patient is completely paralyzed or No completely immobile Mental Status Oriented to own ability Is patient on oxygen? 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 No Cardiac Clearance Received Not Applicable Gastrointestinal Symptoms Abdominal Pain,Constipation Urinary Catheter Present No Hx Urinary Self Catheterization No Diabetes Yes Presence of External or Internal Medical Yes: CPAP Devices Received a COVID vaccine? Yes Marital Status Lives With spouse Patient Discharge Plan Description Return Home Advance Directives? No
--- NOTE | 2022-05-22 16:49 | PM.OP.1 ---
Operative Date/Time/Diagnoses Date of procedure: 05/14/22 Pre-op diagnosis: Gallstone pancreatitis Post-op diagnosis: same Procedure & Clinicians Procedure: Laparoscopic cholecystectomy with intraoperative cholangiogram Same procedure as scheduled: Yes Surgeon: José Luis Cordova Operative Notes Procedure in detail: The patient was given preoperative antibiotic. The patient was brought to the operating room, placed on the table in the supine position. General endotracheal anesthesia was induced. The abdomen was prepped and draped. A time-out was performed. We made a 1 cm infraumbilical incision. We dissected down to the base of the umbilical stalk using cautery. We grasped the umbilical stalk with a Jerrod clamp to elevate the abdominal wall. We scored the fascia in the midline with cautery 1 cm. We pierced the peritoneum with a Peon clamp. The Eriberto port was placed and the abdomen was insufflated to 15 mmHg. A 5 mm 30 degree laparoscopic was inserted. There was no evidence of any injury from the entry. Next, we placed 5 mm ports in the subxiphoid position and right upper quadrant at the midclavicular line and anterior axillary line. Patient was then positioned in reverse Trendelenburg and the table was tilted to the left. The gallbladder was grasped at the dome and retracted cephalad. There were some adhesions of mesenteric tissue to the right liver which were carefully dissected with cautery to allow full retraction of the gallbladder. We then dissected the cystic structures with a combination of hook cautery and blunt dissection. We obtained a critical view. Next, a cholangiogram was performed using the 6 Baham[place] ureteral catheter. There was good flow of contrast into the duodenum and liver with no obvious filling defects. The cystic duct common duct junction was well visualized. We then placed hemoclips on the cystic duct and artery and divided the cystic duct and artery sharply between the clips. The gallbladder was then dissected off the liver and placed in a specimen retrieval bag. We irrigated the right upper quadrant and all the aspirate returned clear. We then removed the 5 mm ports under direct vision we removed the Eriberto port. We then injected some local into the fascia and closed the fascia with 2 interrupted 0 Vicryl sutures. The skin incisions were closed with 4 Monocryl and Steri-Strips were applied. Band-Aids were applied over the Steri-Strips. EBL: 10 mL Specimen: Gallbladder Post-operative Condition: stable Disposition: PACU
== END 2022-05-15 11:00 | disposition home or self-care (01) ==
LOC: OR 13:23 → ICU 05-15 10:29
PROVIDERS: Admitting Provider Surgery; PCP Physician Assistant; Referring Provider Surgery; Visit Provider Surgery
PROC: 0FT44ZZ Resection of Gallbladder, Percutaneous Endoscopic Approach (ICD-10-PCS; CPT 47562; principal; 2022-05-14 15:15)
DX: K85.10 Biliary acute pancreatitis without necrosis or infection (principal); K82.4 Cholesterolosis of gallbladder
CPT/HCPCS: 47563; 36415; 74300; 76000; 80053; 82962; 83690; 85025; G0378; A9270; J0330; J0360; J0690; J2250; J2704; J3010

== ENCOUNTER → 2022-07-08 15:44 | Outpatient (CLI) | payer OTHER, SELFPAY ==
[2022-05-14 22:07] VITALS: BMI 35.9
[2022-07-08 18:31] LABS: Add Manual Diff / Slide Review NO; Basophils Absolute Auto 0 /uL (0-100); Basophils Percent Auto 0.8 % (0-2); Eosinophils Absolute Auto 200 /uL (0-450); Eosinophils Percent Auto 2.5 % (2-4); Hematocrit 42.1 % (41-53); Hemoglobin 14.8 g/dL (13.5-17.5); Lymphocytes Absolute Auto 1700 /uL (1100-4500); Mean Corpuscular HGB Conc 35.2 % (30-36); Mean Corpuscular Hemoglobin 29.7 PG (26-34); Mean Corpuscular Volume 84.4 fL (80-100); Monocytes Absolute Auto 500 /uL (0-900); Monocytes Percent Auto 7.3 % (3-14); Neutrophils Absolute Auto 4000 /uL (1500-7000); Neutrophils Percent Auto 62.4 % (50-75); Platelet Count 173 X10^3/uL (150-400); Red Blood Cell Count 4.99 X10^6/uL (4.5-5.9); Red Cell Distribution Width 13.7 % (11.6-14.8); White Blood Cell Count 6.4 X10^3/uL (4.5-11.0)
[2022-07-08 18:36] LABS: Hemoglobin A1C% w Est Avg Glu 10.2 % (4.0-6.0)
[2022-07-08 18:44] LABS: Alanine Aminotransferase 45 IU/L (<50); Albumin 4.2 g/dL (3.5-5.0); Albumin Globulin Ratio 1.4 (1.0-2.8); Alkaline Phosphatase 95 U/L (38-126); Aspartate Aminotransferase 34 IU/L (17-59); BUN Creatinine Ratio 13.8 (6-22); Bilirubin Total 0.9 mg/dL (0.2-1.3); Blood Urea Nitrogen 11 mg/dL (9-20); Carbon Dioxide 20 mmol/L (22-32); Chloride 98 mmol/L (98-107); Estimated Glomerular Filt Rate > 60 mL/min (>60); Glucose 331 mg/dL (70-100); HEMOLYSIS 42 (0-50); Lipase 467 U/L (23-300); Potassium 3.9 mmol/L (3.4-5.1); Sodium 134 mmol/L (137-145); Total Protein 7.2 g/dL (6.3-8.2)
[2022-07-08 20:46] LABS: Calcium 9.1 mg/dL (8.4-10.2)
== END ==
PROVIDERS: PCP Physician Assistant; Referring Provider Surgery; Visit Provider Surgery
DX: K81.9 Cholecystitis, unspecified (principal); K85.90 Acute pancreatitis without necrosis or infection, unspecified
CPT/HCPCS: 36415; 80053; 83036; 83690; 85025

== ENCOUNTER 2022-09-25 05:55 | Observation (INO) | payer OTHER, SELFPAY ==
[2022-05-14 22:07] VITALS: BMI 35.9
[2022-09-25] VITALS (27 sets, daily range): BP systolic 139–202; BP diastolic 74–106; PULSE 57–85; RESP 12–42; TEMP 35.6–36.9; O2SAT 96–100; BMI 35.3
[2022-09-25 06:56] LABS: Add Manual Diff / Slide Review NO; Basophils Absolute Auto 100 /uL (0-100); Basophils Percent Auto 1.2 % (0-2); Eosinophils Absolute Auto 200 /uL (0-450); Hematocrit 43.8 % (41-53); Hemoglobin 15.2 g/dL (13.5-17.5); Lymphocytes Absolute Auto 2000 /uL (1100-4500); Lymphocytes Percent Auto 30.5 % (25-40); Mean Corpuscular HGB Conc 34.8 % (30-36); Mean Corpuscular Hemoglobin 29.2 PG (26-34); Monocytes Absolute Auto 500 /uL (0-900); Neutrophils Absolute Auto 3800 /uL (1500-7000); Neutrophils Percent Auto 57.3 % (50-75); Platelet Count 172 X10^3/uL (150-400); Red Blood Cell Count 5.21 X10^6/uL (4.5-5.9); Red Cell Distribution Width 13.2 % (11.6-14.8); White Blood Cell Count 6.6 X10^3/uL (4.5-11.0)
[2022-09-25 07:09] LABS: Alanine Aminotransferase 54 IU/L (<50); Albumin 4.3 g/dL (3.5-5.0); Albumin Globulin Ratio 1.2 (1.0-2.8); Alkaline Phosphatase 82 U/L (38-126); Aspartate Aminotransferase 60 IU/L (17-59); Blood Urea Nitrogen 9 mg/dL (9-20); Calcium 8.3 mg/dL (8.4-10.2); Carbon Dioxide 19 mmol/L (22-32); Chloride 105 mmol/L (98-107); Estimated Glomerular Filt Rate > 60 mL/min (>60); Globulin 3.7 g/dL (1.7-4.1); Glucose 236 mg/dL (70-100); HEMOLYSIS 307 (0-50); Lipase 646 U/L (23-300); Potassium 4.7 mmol/L (3.4-5.1); Sodium 135 mmol/L (137-145)
--- NOTE | 2022-09-25 08:13 | DI.US.S_ITS ---
PROCEDURE: US ABDOMEN LIMITED INDICATIONS: RUQ PAIN TECHNIQUE: Real-time focused scanning was performed of the abdomen, with image documentation. COMPARISON: [facility], US, US ABDOMEN LIMITED, 04/30/2022, 14:36. FINDINGS: Liver measures 20 cm. Significantly increased echogenicity. Gallbladder is surgically absent. The CBD measures 5 mm. Visualized pancreas within normal limits. IMPRESSION: Gallbladder is surgically absent. No biliary ductal dilation. Hepatomegaly and significantly increased hepatic echogenicity, most commonly seen with steatosis. Evaluation is limited by body habitus and echogenic liver, limiting visualization of the deep field. Dictated by: Rogers Navarrete M.D. on 09/25/2022 at 8:46 Approved by: Rogers Navarrete M.D. on 09/25/2022 at 8:47
--- NOTE | 2022-09-25 08:13 | DI.MRI.S_ITS ---
PROCEDURE: MR ABDOMEN WO/W CON INDICATIONS: upper abd pain TECHNIQUE: Coronal HASTE, axial 2D FLASH in- and [id number]; axial breath-hold T2 FSE. Dynamic axial VIBE during the administration of contrast; post-contrast coronal VIBE or 2D FLASH with fat saturation from the hepatic dome to the iliac crests. Optional diffusion weighted imaging and ADC may be performed. COMPARISON: [facility], CT, CT ABDOMEN PELVIS WO CON, 04/08/2022, 6:59. FINDINGS: Image quality: Good Lower chest: No basal effusions. Lungs are not well evaluated on MRI. Solid organs: Hepatic steatosis, with suspected areas of fatty sparing. No hypervascular liver lesion. Gallbladder is absent. The biliary tree is nondilated. No evidence of choledocholithiasis. Pancreatic duct is within normal limits. No splenomegaly. No adrenal nodules. No hydronephrosis. Vessels and lymph nodes: No abdominal aortic aneurysm. No pathologic adenopathy by size criteria. Bowel and peritoneum: No bowel obstruction or pathologic ascites. Body wall: Suspected small fat containing midline ventral hernia. Suspected anterior abdominal wall postsurgical changes. Bones: No acute or suspicious osseous abnormality. IMPRESSION: No acute abnormality by MRI in the abdomen. Status post cholecystectomy. The biliary tree is nondilated. Other findings as above. Dictated by: Rogers Navarrete M.D. on 09/25/2022 at 11:23 Approved by: Rogers Navarrete M.D. on 09/25/2022 at 11:29
[2022-09-25] MEDS: ALPRAZolam 0.5 MG TABLET PO (08:31)
[2022-09-25] MEDS: lisinopriL 10 MG TABLET PO (08:32)
--- NOTE | 2022-09-25 09:02 | DI.CT.S_ITS ---
PROCEDURE: CT HEAD/BRAIN WO CON INDICATIONS: headache TECHNIQUE: Noncontrast 4.5 mm thick angled axial sections acquired from the foramen magnum to the vertex, with coronal and sagittal reformats. For radiation dose reduction, the following was used: automated exposure control, adjustment of mA and/or kV according to patient size. COMPARISON: None. FINDINGS: Image quality: Excellent. CSF spaces: Basal cisterns are patent. No extra-axial fluid collections. Ventricles are normal in size and shape. Brain: No midline shift. No intracranial masses or hemorrhage. Haile-white matter interface is normal. Skull and face: Calvarium and visualized facial bones are intact, without suspicious lesions. Sinuses: Visualized sinuses and mastoids are clear. IMPRESSION: No acute intracranial abnormality. Dictated by: Rome Campuzano M.D. on 09/25/2022 at 9:19 Approved by: Rome Campuzano M.D. on 09/25/2022 at 9:19
[2022-09-25 09:46] LABS: COVID19 -Nasal RAPID Negative (Negative)
--- NOTE | 2022-09-25 09:48 | ED_ITS ---
HPI - General Adult General Chief complaint: Abdominal Pain Stated complaint: migraine, pancartisis, high blood pressure, Time Seen by Provider: 09/25/22 06:27 Source: patient Mode of arrival: Ambulatory History of Present Illness HPI narrative: Patient drove herself here from home. Complains of headache abdominal pain. Headache started 3 weeks ago has been persistent. Unrelieved with anpe-pfv-pbfznoe medication and prednisone. Patient states right upper quadrant epigastric pain started about week and half ago. Patient has been worked up extensively 1 year ago for headaches as well as for abdominal pain. He has seen General surgeon here for cholecystectomy last fall. However continues to have intermittent abdominal pain. Patient was evaluated by Rheumatology last year for possible giant cell arteritis and had biopsy artery in the forehead which was inconclusive. However patient did self medicate with prednisone that helped his abdominal pain/pancreatitis. Patient has been off steroids since last year. He did try taking steroids that was left over a week ago that seemed to lessen the pain but never resolved of the generalized headache. He states headache is different from previous headaches. It is generalized. No vision changes though. Patient states he has been under lot of stress. He has for alberto estrada at home requiring a lot of needs. He is not been able to work because of the headache. He is very anxious. He is not required to be on blood pressure medication. He is had a stress test in the past without any abnormal results he states. He is not supposed to be on blood pressure medication he states. Patient had cholangiogram and so cholecystectomy last year. At this time regarding giant cell arteritis, he states his rigger helper has ruled that out but he continues to have intermittent headaches. Denies any chest pain dyspnea numbness tingling or weakness. Patient does appear anxious. Very rapid and pressured speech. Related Data Home Medications Medication Instructions Recorded Confirmed ibuprofen 200 mg tablet (Advil) 600 mg PO BID pain 05/14/22 09/25/22 loratadine-pseudoephedrine ER 10 1 tab PO DAILY 05/14/22 09/25/22 mg-240 mg tablet,extended [id number] (Claritin-D 24 Hour) metformin 500 mg tablet,extended 1,000 mg PO BID 05/14/22 09/25/22 release 24 hr sodium chloride 0.65 % nasal mist 2 spray intranasal BEDTIME 05/14/22 09/25/22 Previous Rx's Medication Instructions Recorded acetaminophen 500 mg capsule 500 mg PO Q6H PRN Pain (Scale 09/26/22 Score 4-6) #30 caps losartan 50 mg tablet 50 mg PO BID 90 days #180 tabs 09/26/22 Allergies Allergy/AdvReac Type Severity Reaction Status Date / Time aspirin Allergy Severe Anaphylaxis Verified 07/08/22 15:33 Iodinated Contrast Media Allergy Severe Fever Verified 07/08/22 15:33 Beef Containing Products Allergy Verified 09/26/22 12:31 tetanus and diphtheria AdvReac Severe Fever Verified 07/08/22 15:33 toxoids Review of Systems Review of Systems Narrative: GENERAL: negative chills, fatigue, malaise, fever, sweats. HEENT: negative sinus pain, ear pain, sore throat RESPIRATORY: negative dyspnea, cough CARDIOVASCULAR: negative chest pain, palpitations GASTROINTESTINAL: negative nausea, vomiting, positive abdominal pain : negative dysuria, frequency, hematuria MUSCULOSKELETAL: negative muscle or bony pain SKIN: negative rash, skin lesions NEUROLOGIC: negative weakness, numbness, positive headache ROS Unobtainable: All systems reviewed & are unremarkable except as noted in HPI and below Patient History Medical History Asthma COPD (chronic obstructive pulmonary disease) COVID-19 virus infection (01/02/22) Depression Diabetes Elevated cholesterol Gallbladder disease Giant cell arteritis Hx of migraine headaches MITCHELL on CPAP Pneumonia Sinus drainage Surgical History H/O vasectomy (2004) Social History household members: spouse, family and children Smoking Status: Never smoker alcohol intake: never Smoking Status: Never smoker alcohol intake frequency: holidays/special occasions only Substance Use Type: does not use Exam Narrative Exam Narrative: GENERAL: in no distress, not toxic not dyspneic HEAD: Normocephalic. EYES: Pupils equal round, no papilledema or photophobia ENT: Mucous membranes moist. NECK: Trachea midline. No meningeal signs with range of motion CARDIOVASCULAR: Regular rate and rhythm without murmurs RESPIRATORY: Clear to auscultation. Breath sounds equal bilaterally. No wheezes, rales, or rhonchi. GASTROINTESTINAL: Abdomen soft, non-tender EXTREMITIES: No gross deformities. BACK: No flank tenderness. NEURO: AOx4. 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 SKIN: Warm and dry PSYCH: Not anxious, is cooperative Initial Vital Signs Initial Vital Signs: Vital Signs Temperature 96.6 F L 09/25/22 05:58 Pulse Rate 62 09/25/22 05:58 Respiratory Rate 18 09/25/22 05:58 Blood Pressure 185/94 H 09/25/22 05:58 Pulse Oximetry 100 09/25/22 05:58 Oxygen Delivery Method 09/25/22 05:58 Course Orders Ordered: Discontinued Medications Acetaminophen (Acetaminophen 325 Mg Tablet) 650 mg PO Q6H PRN PRN Reason: Fever/Mild Pain (1-3) Last Admin: 09/26/22 11:05 Dose: 650 mg Documented By: Admin: 09/26/22 03:15 Dose: 650 mg Documented By: Admin: 09/25/22 14:45 Dose: 650 mg Documented By: SEGUNDO Alprazolam (Alprazolam 0.5 Mg Tablet) 0.5 mg PO NOW ONE Stop: 09/25/22 08:14 Last Admin: 09/25/22 08:31 Dose: 0.5 mg Documented By: KRISTY Dextrose (Dextrose 50 % In Water 25 Gm/50 Ml Syringe) 25 gm IV PRN PRN PRN Reason: Hypoglycemia Diazepam (Diazepam 5 Mg Tablet) 5 mg PO Q6HR PRN PRN Reason: Anxiety Last Admin: 09/26/22 03:18 Dose: 5 mg Documented By: Admin: 09/25/22 14:46 Dose: 5 mg Documented By: SEGUNDO Fluticasone Propionate (Fluticasone 120 Hardwick/16 Gm Hardwick.Susp) 1 spray NASAL BID REPLACED BY [facility] Last Admin: 09/26/22 08:26 Dose: Not Given Documented By: Admin: 09/25/22 22:26 Dose: Not Given Documented By: KRISTEN Ibuprofen (Ibuprofen 200 Mg Tablet) 800 mg PO TID PRN PRN Reason: Pain, Mild (1-3) Insulin Glargine (Insulin Glargine 100 Unit/Ml 3ml Pen) 15 unit SUBCUT 2100 REPLACED BY [facility] Last Admin: 09/25/22 20:52 Dose: 15 unit Documented By: KRISTEN Co-signed By: SAÚL Insulin Glargine (Insulin Glargine 100 Unit/Ml 3ml Pen) 15 unit SUBCUT BID REPLACED BY [facility] Insulin Human Lispro (Insulin Lispro 100 Unit/Ml 3ml Vial) 0 unit SUBCUT ACHS REPLACED BY [facility]; Protocol Last Admin: 09/26/22 08:11 Dose: 3 unit Documented By: CLARA Co-signed By: SEGUNDO Admin: 09/25/22 20:52 Dose: 2 unit Documented By: KRISTEN Co-signed By: SAÚL Admin: 09/25/22 17:31 Dose: 5 unit Documented By: SEGUNDO Co-signed By: CLARA Labetalol HCl (Labetalol 20 Mg/4 Ml Syringe) 10 mg IV Q5H PRN PRN Reason: SBP >190 or DBP >110 Lidocaine (Lidocaine Patch 1 Each Adh..Patch) 1 each TOP DAILY REPLACED BY [facility] Last Admin: 09/26/22 08:27 Dose: Not Given Documented By: Admin: 09/25/22 20:52 Dose: 1 each Documented By: KRISTEN Lisinopril (Lisinopril 10 Mg Tablet) 10 mg PO NOW ONE Stop: 09/25/22 08:16 Last Admin: 09/25/22 08:32 Dose: 10 mg Documented By: KRISTY Losartan Potassium (Losartan 50 Mg Tablet) 50 mg PO BID REPLACED BY [facility] Last Admin: 09/26/22 08:10 Dose: 50 mg Documented By: Admin: 09/25/22 20:53 Dose: 50 mg Documented By: KRISTEN Magnesium Chloride (Magnesium Chloride 64 Mg Tablet) 128 mg PO NOW ONE Stop: 09/25/22 15:01 Last Admin: 09/25/22 15:09 Dose: 128 mg Documented By: SEGUNDO Melatonin (Melatonin 3 Mg Tablet) 6 mg PO BEDTIME PRN PRN Reason: Insomnia Naloxone HCl (Naloxone 0.4 Mg/Ml Vial) 0.2 mg IV Q2MIN PRN PRN Reason: Opiate Reversal Oxycodone HCl (Oxycodone Ir 5 Mg Tablet) 5 mg PO Q4HR PRN PRN Reason: Pain, Moderate (4-6) Polyethylene Glycol (Polyethylene Glycol 3350 17 Gm Powd.Pack) 17 gm PO DAILY PRN PRN Reason: Constipation Prednisone (Prednisone 20 Mg Tablet) 40 mg PO DAILY REPLACED BY [facility] Stop: 09/29/22 12:14 Last Admin: 09/25/22 14:42 Dose: Not Given Documented By: SEGUNDO Sennosides (Sennosides 8.6 Mg Tablet) 8.6 mg PO BID PRN PRN Reason: Constipation Sodium Chloride (Sodium Chloride 0.9% Flush) 10 ml IV PRN PRN PRN Reason: Flush Sodium Chloride (Sodium Chloride 0.9% Flush) 10 ml IV BID CHRISTEN Last Admin: 09/25/22 21:02 Dose: 10 ml Documented By: KRISTEN Vital Signs Vital signs: Vital Signs - 8 hr 09/25/22 11:31 09/25/22 12:00 09/25/22 12:00 Pulse Rate 61 Respiratory Rate 12 Blood Pressure 150/82 H 163/79 H Pulse Oximetry 97 Medical Decision Making Lab Data 09/25/22 06:35 09/25/22 06:35 Labs: Lab Results 09/25/22 09/25/22 09/25/22 Range/Units 06:35 06:35 06:35 WBC 6.6 (4.5-11.0) X10^3/uL RBC 5.21 (4.5-5.9) X10^6/uL Hgb 15.2 (13.5-17.5) g/dL Hct 43.8 (41-53) % MCV 84.0 (80-100) fL MCH 29.2 (26-34) PG MCHC 34.8 (30-36) % RDW 13.2 (11.6-14.8) % Plt Count 172 (150-400) X10^3/uL Neut % (Auto) 57.3 (50-75) % Lymph % (Auto) 30.5 (25-40) % [place] % (Auto) 8.0 (3-14) % Eos % (Auto) 3.0 (2-4) % Baso % (Auto) 1.2 (0-2) % Neut # (Auto) 3800 (3686-1118) /uL Lymph # (Auto) 2000 (2676-6421) /uL [place] # (Auto) 500 (0-900) /uL Eos # (Auto) 200 (0-450) /uL Baso # (Auto) 100 (0-100) /uL Sodium 135 L (137-145) mmol/L Potassium 4.7 (3.4-5.1) mmol/L Chloride 105 (98-107) mmol/L Carbon Dioxide 19 L (22-32) mmol/L BUN 9 (9-20) mg/dL Creatinine 0.53 L (0.66-1.25) mg/dL Estimated GFR > 60 (>60) mL/min BUN/Creatinine Ratio 17.0 (6-22) Glucose 236 H (70-100) mg/dL Hemoglobin A1c (4.0-6.0) % Calcium 8.3 L (8.4-10.2) mg/dL Magnesium 1.7 (1.6-2.3) mg/dL Total Bilirubin 2.0 H (0.2-1.3) mg/dL AST 60 H (17-59) IU/L ALT 54 H (<50) IU/L Alkaline Phosphatase 82 (38-126) U/L Total Protein 8.0 (6.3-8.2) g/dL Albumin 4.3 (3.5-5.0) g/dL Globulin 3.7 (1.7-4.1) g/dL Albumin/Globulin Ratio 1.2 (1.0-2.8) Lipase 646 H (23-300) U/L SARS-CoV-2 (PCR) (Negative) 09/25/22 09/25/22 Range/Units 06:35 09:24 WBC (4.5-11.0) X10^3/uL RBC (4.5-5.9) X10^6/uL Hgb (13.5-17.5) g/dL Hct (41-53) % MCV (80-100) fL MCH (26-34) PG MCHC (30-36) % RDW (11.6-14.8) % Plt Count (150-400) X10^3/uL Neut % (Auto) (50-75) % Lymph % (Auto) (25-40) % [place] % (Auto) (3-14) % Eos % (Auto) (2-4) % Baso % (Auto) (0-2) % Neut # (Auto) (3464-3216) /uL Lymph # (Auto) (0499-3795) /uL [place] # (Auto) (0-900) /uL Eos # (Auto) (0-450) /uL Baso # (Auto) (0-100) /uL Sodium (137-145) mmol/L Potassium (3.4-5.1) mmol/L Chloride (98-107) mmol/L Carbon Dioxide (22-32) mmol/L BUN (9-20) mg/dL Creatinine (0.66-1.25) mg/dL Estimated GFR (>60) mL/min BUN/Creatinine Ratio (6-22) Glucose (70-100) mg/dL Hemoglobin A1c 10.7 H (4.0-6.0) % Calcium (8.4-10.2) mg/dL Magnesium (1.6-2.3) mg/dL Total Bilirubin (0.2-1.3) mg/dL AST (17-59) IU/L ALT (<50) IU/L Alkaline Phosphatase (38-126) U/L Total Protein (6.3-8.2) g/dL Albumin (3.5-5.0) g/dL Globulin (1.7-4.1) g/dL Albumin/Globulin Ratio (1.0-2.8) Lipase (23-300) U/L SARS-CoV-2 (PCR) Negative (Negative) Point of Care Testing Glucose POC 252 Point of care testing: Point of Care Testing Glucose POC [address] scan - head: Radiologist's Impression: [place] [address] CT Scan Report Signed Patient: Jean Mendez MR#: [id number] : 1965 Acct:[id number] Age/Sex: 56 / M Date of Service: 09/25/22 Loc: ED Accession Number: [id number] ?? Procedure: CT head/brain wo con Ordering Provider: Valentino Mack MD PROCEDURE:? CT HEAD/BRAIN WO CON ? INDICATIONS:? headache ? TECHNIQUE:? Noncontrast 4.5 mm thick angled axial sections acquired from the foramen magnum to the vertex, with coronal and sagittal reformats.? For radiation dose reduction, the following was used:? automated exposure control, adjustment of mA and/or kV according to patient size.? ? COMPARISON:? None. ? FINDINGS:? Image quality:? Excellent.? ? CSF spaces:? Basal cisterns are patent.? No extra-axial fluid collections.? Ventricles are normal in size and shape.? ? Brain:? No midline shift.? No intracranial masses or hemorrhage.? Haile-white matter interface is normal.? ? Skull and face:? Calvarium and visualized facial bones are intact, without suspicious lesions.? ? Sinuses:? Visualized sinuses and mastoids are clear.? ? IMPRESSION:? No acute intracranial abnormality. ? ? Dictated by: Rome Campuzano M.D. on 09/25/2022 at 9:19 ? ? Approved by: Rome Campuzano M.D. on 09/25/2022 at 9:19 ? US - abdomen: Radiologist's Impression: [place] [address] Ultrasound Report Signed Patient: Jean Mendez MR#: [id number] : 1965 Acct:[id number] Age/Sex: 56 / M Date of Service: 09/25/22 Loc: ED Accession Number: [id number] ?? Procedure: US abdomen limited Ordering Provider: Valentino Mack MD PROCEDURE: US ABDOMEN LIMITED ? INDICATIONS:? RUQ PAIN ? TECHNIQUE:? Real-time focused scanning was performed of the abdomen, with image documentation.? ? COMPARISON:? [facility], , US ABDOMEN LIMITED, 04/30/2022, 14:36. ? FINDINGS:? Liver measures 20 cm.? Significantly increased echogenicity. ? Gallbladder is surgically absent.? The CBD measures 5 mm. Visualized pancreas within normal limits.? ? IMPRESSION:? Gallbladder is surgically absent.? No biliary ductal dilation. ? Hepatomegaly and significantly increased hepatic echogenicity, most commonly seen with steatosis. ? Evaluation is limited by body habitus and echogenic liver, limiting visualization of the deep field.? ? Dictated by: Rogers Navarrete M.D. on 09/25/2022 at 8:46 ? ? Approved by: Rogers Navarrete M.D. on 09/25/2022 at 8:47 ? MRCP: Radiologist's Impression: [address] [address] Magnetic Resonance Report Signed Patient: Jean Mendez MR#: [id number] : 1965 Acct:[id number] Age/Sex: 56 / M Date of Service: 09/25/22 Loc: ED Accession Number: [id number] ?? Procedure: MR abdomen wo/w con Ordering Provider: Valentino Mack MD PROCEDURE:? MR ABDOMEN WO/W CON ? INDICATIONS:? upper abd pain ? TECHNIQUE:? Coronal HASTE, axial 2D FLASH in- and [id number]; axial breath-hold T2 FSE.? Dynamic axial VIBE during the administration of contrast; post-contrast coronal VIBE or 2D FLASH with fat saturation from the hepatic dome to the iliac crests.? Optional diffusion weighted imaging and ADC may be performed.? ? COMPARISON:? [facility], CT, CT ABDOMEN PELVIS WO CON, 04/08/2022, 6:59. ? FINDINGS:? Image quality:? Good ? Lower chest:? No basal effusions.? Lungs are not well evaluated on MRI. ? Solid organs:? Hepatic steatosis, with suspected areas of fatty sparing.? No hypervascular liver lesion. Gallbladder is absent. The biliary tree is nondilated.? No evidence of choledocholithiasis. Pancreatic duct is within normal limits.? No splenomegaly.? No adrenal nodules.? No hydronephrosis. ? Vessels and lymph nodes:? No abdominal aortic aneurysm.? No pathologic adenopathy by size criteria. ? Bowel and peritoneum:? No bowel obstruction or pathologic ascites.? ? Body wall:? Suspected small fat containing midline ventral hernia.? Suspected anterior abdominal wall postsurgical changes. ? Bones:? No acute or suspicious osseous abnormality. ? IMPRESSION:? No acute abnormality by MRI in the abdomen.? Status post cholecystectomy.? The biliary tree is nondilated.? Other findings as above. ? Dictated by: Rogers Navarrete M.D. on 09/25/2022 at 11:23 ? ? Approved by: Rogers Navarrete M.D. on 09/25/2022 at 11:29 ? ECG Data Interpretation: Normal sinus rhythm rate [address] elevation depression MDM Narrative Medical decision making narrative: Patient drove herself here from home. Complains of headache abdominal pain. Headache started 3 weeks ago has been persistent. Unrelieved with [id number] medication and prednisone. Patient states right upper quadrant epigastric pain started about week and half ago. Patient has been worked up extensively 1 year ago for headaches as well as for abdominal pain. He has seen General surgeon here for cholecystectomy last fall. However continues to have intermittent abdominal pain. Patient was evaluated by Rheumatology last year for possible giant cell arteritis and had biopsy artery in the forehead which was inconclusive. However patient did self medicate with prednisone that helped his abdominal pain/pancreatitis. Patient has been off steroids since last year. He did try taking steroids that was left over a week ago that seemed to lessen the pain but never resolved of the generalized headache. He states headache is different from previous headaches. It is generalized. No vision changes though. Patient states he has been under lot of stress. 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 He is not been able to work because of the headache. He is very anxious. He is not required to be on blood pressure medication. He is had a stress test in the past without any abnormal results he states. He is not supposed to be on blood pressure medication he states. Patient had cholangiogram and so cholecystectomy last year. At this time regarding giant cell arteritis, he states his rigger helper has ruled that out but he continues to have intermittent headaches. After exam and history, CT had abdominal ultrasound CBC CMP lipase EKG, Xanax and lisinopril have been ordered. [facility] CC: Headache/hypertension/abdominal pain Complicating co-morbidities: History of pancreatitis Data collected from: Patient and medical records Medical records reviewed: Review medical records of patient cholangiogram and gallbladder workup Differential considered: Includes but not limited to cholangitis/cholelithiasis/hypertensive urgency/migraine headache Exam documented above, pertinent findings include: Mild epigastric right upper quadrant tenderness Lab Test results independently reviewed as above. Pertinent findings: CBC without leukocytosis. CMP does show elevated glucose 236 with slightly elevated ALT AST 54 and 60 respectively. Total bilirubin 2.0 , lipase 646 Independently reviewed EKG as above Imaging studies independently reviewed: CT head no acute process, ultrasound abdomen no acute process, MRCP no acute process Consultations: 12:[address] Joyce, hospitalist, will admit. Treatments: Lisinopril and Xanax Re-evaluations 9:58 a.m.. Patient headache is improving blood pressure improved 160/86. Patient much more relaxed.: Patient does agree for admission. Discussion: Appropriate for admission for hypertensive urgency and blood pressure monitoring and control. Patient will likely need to start blood pressure medication. Patient otherwise neurovascularly intact. No neuro deficits. Headache likely related to hypertension. As well as stress anxiety. Lipase levels noted. However patient does have history of chronic pancreatitis. Diagnosis: Hypertensive urgency Discharge Plan Departure Patient Disposition: Admitted as Observation Clinical Impression: Hypertensive urgency Admit Date/Time: 09/25/22 12:03 Admit Provider: Damian Joyce
--- NOTE | 2022-09-25 12:11 | P.HP_ITS ---
History of Present Illness History of Present Illness Date Patient Seen: 09/25/22 Chief complaint: migraine, pancartisis, high blood pressure, Narrative: Jean Mendez is a 56-year-old male with past medical history of HTN, anxiety, DM2, COPD, MITCHELL on CPAP, cholecystectomy, exercise induced asthma, and HLD who presents with a severe headache and found to have BP up to 202/106. Patient rep orts lots of stress in his life. He has remote history of presumed temporal arteritis for which he see's Dr. Wong at [facility] rheumatology. He had left sided headaches with visual changes at that time which responded very well to po prednisone. He says this headache feels different. Currently headache has improved with valium, BP improvement and patient appears more calm and relaxed. He also notes a pain in his right flank, for which he had an MRCP done in the ED which was negative. He says the pain feels identical to his previous gallstone pain in the past, for which he has had a cholecystectomy. Pain is worse with movement and in certain positions, but better at rest. Patient denies CP, NV, abd pain, diarrhea, visual changes or aura. Patient History Medical History Asthma COPD (chronic obstructive pulmonary disease) COVID-19 virus infection (01/02/22) Depression Diabetes Elevated cholesterol Gallbladder disease Giant cell arteritis Hx of migraine headaches MITCHELL on CPAP Pneumonia Sinus drainage Surgical History H/O vasectomy (2004) Family & Social History Social History: household members spouse Safety & Behavioral: Feels Safe in Current Yes Environment Been Physically Hurt or No Threatened By a Person Tobacco & Substance use: Smoking Status Never smoker alcohol intake never alcohol intake frequency holiday/special occasion Substance Use Type does not use Meds Home Medications and Allergies Home Medications Medication Instructions Recorded Confirmed Type acetaminophen 500 mg capsule 1,500 mg PO Q6H PRN Pain (Scale 05/14/22 09/25/22 History Score 4-6) ibuprofen 200 mg tablet (Advil) 600 mg PO BID pain 05/14/22 09/25/22 History loratadine-pseudoephedrine ER 10 1 tab PO DAILY 05/14/22 09/25/22 History mg-240 mg tablet,extended [id number] (Claritin-D 24 Hour) metformin 500 mg tablet,extended 1,000 mg PO BID 05/14/22 09/25/22 History release 24 hr sodium chloride 0.65 % nasal mist 2 spray intranasal BEDTIME 05/14/22 09/25/22 History Allergies Allergy/AdvReac Type Severity Reaction Status Date / Time aspirin Allergy Severe Anaphylaxis Verified 07/08/22 15:33 Iodinated Contrast Media Allergy Severe Fever Verified 07/08/22 15:33 tetanus and diphtheria AdvReac Severe Fever Verified 07/08/22 15:33 toxoids Review of Systems Review of Systems Narrative: All other systems reviewed with the patient and are negative unless otherwise stated. Exam Vital Signs (past 8 hours): - 09/25/22 05:58 09/25/22 06:36 09/25/22 06:36 Temperature 96.6 F L Pulse Rate 62 80 Respiratory Rate 18 Blood Pressure 185/94 H 183/102 H Pulse Oximetry 100 98 Oxygen Delivery Method Room Air Room Air 09/25/22 07:00 09/25/22 07:01 09/25/22 07:01 Temperature Pulse Rate 60 67 Respiratory Rate 15 21 Blood Pressure 168/93 H Pulse Oximetry 97 97 Oxygen Delivery Method 09/25/22 08:32 09/25/22 07:30 09/25/22 07:31 Temperature Pulse Rate 79 61 Respiratory Rate 13 Blood Pressure 175/85 H 176/93 H Pulse Oximetry 98 Oxygen Delivery Method 09/25/22 07:31 09/25/22 08:00 09/25/22 08:00 Temperature Pulse Rate 59 L 73 Respiratory Rate 15 22 Blood Pressure 202/106 H Pulse Oximetry 98 98 Oxygen Delivery Method 09/25/22 08:30 09/25/22 08:31 09/25/22 08:31 Temperature Pulse Rate 67 74 Respiratory Rate 25 H 22 Blood Pressure 175/85 H Pulse Oximetry 97 98 Oxygen Delivery Method 09/25/22 09:00 09/25/22 09:01 09/25/22 09:01 Temperature Pulse Rate 68 75 Respiratory Rate 23 42 H Blood Pressure 144/87 H Pulse Oximetry 97 97 Oxygen Delivery Method 09/25/22 09:04 09/25/22 09:04 09/25/22 09:30 Temperature Pulse Rate 59 L 62 Respiratory Rate 14 14 Blood Pressure 160/86 H Pulse Oximetry 97 98 Oxygen Delivery Method 09/25/22 10:00 09/25/22 10:56 09/25/22 11:00 Temperature Pulse Rate 57 L 85 67 Respiratory Rate 21 16 Blood Pressure Pulse Oximetry 97 99 97 Oxygen Delivery Method 09/25/22 11:08 09/25/22 11:31 Temperature Pulse Rate 62 Respiratory Rate 13 Blood Pressure 150/82 H Pulse Oximetry 97 Oxygen Delivery Method Oxygen Delivery Method Room Air Narrative Exam Narrative: GEN: anxious, obese HEENT: moist mucous membranes, PERRL NECK: trachea midline, no JVD CV: regular rate and rhythm, no murmurs PULM: clear bilaterally ABD: soft, nontender, nondistended, no organomegaly EXT: warm and well perfused with no edema NEURO: awake, alert, oriented, no focal deficits Objective Labs 09/25/22 06:35 09/25/22 06:35 Labs: Laboratory Results - last 24 hr 09/25/22 09/25/22 09/25/22 06:35 06:35 09:24 WBC 6.6 RBC 5.21 Hgb 15.2 Hct 43.8 MCV 84.0 MCH 29.2 MCHC 34.8 RDW 13.2 Plt Count 172 Neut % (Auto) 57.3 Lymph % (Auto) 30.5 [place] % (Auto) 8.0 Eos % (Auto) 3.0 Baso % (Auto) 1.2 Neut # (Auto) 3800 Lymph # (Auto) 2000 [place] # (Auto) 500 Eos # (Auto) 200 Baso # (Auto) 100 Sodium 135 L Potassium 4.7 Chloride 105 Carbon Dioxide 19 L BUN 9 Creatinine 0.53 L Estimated GFR > 60 BUN/Creatinine Ratio 17.0 Glucose 236 H Calcium 8.3 L Total Bilirubin 2.0 H AST 60 H ALT 54 H Alkaline Phosphatase 82 Total Protein 8.0 Albumin 4.3 Globulin 3.7 Albumin/Globulin Ratio 1.2 Lipase 646 H SARS-CoV-2 (PCR) Negative Assessment & Plan Assessment & Plan narrative: # hypertensive urgency, headache in the setting of anxiety -blood pressure up to 202/106 in ED, 150/82 with lisinopril and Xanax. -patient notes chronic headaches but this acute headache felt different, previously worked up for giant cell arteritis which was inconclusive. Could be related to anxiety or MITCHELL. -patient not on home blood pressure medications, but per chart has several previous blood pressure readings hypertension -start losartan 50 mg b.i.d., labetalol IV as needed for BP >190 or >110 -start Valium 5 mg q.6 as needed for anxiety -obtain MRI brain, CT head already normal -oxycodone, ibuprofen and Tylenol as needed for pain -troponin neg x2 # poorly controlled DM2 -A1c 10.7% -hold home metformin -lantus 15 units nightly and med dose SSI -substation designer consulted # right flank pain -appears MSK -lidoderm patch daily # MITCHELL -continue CPAP use Code status is full code. COVID negative. DVT prophylaxis with SCDs. Proxy is Loren. I have reviewed home meds and used all available resources to reconcile the home meds. This patient will be admitted as observation and will require less than 2 midnights of hospital time to treat hypertensive urgency, anxiety and headaches. Time Spent With Patient Critical Care time: I spent a total of [] minutes of critical care time on this patient's care today; this time is exclusive of procedural time.
[2022-09-25 12:45] LABS: Hemoglobin A1C% w Est Avg Glu 10.7 % (4.0-6.0)
[2022-09-25 12:46] LABS: Magnesium 1.7 mg/dL (1.6-2.3)
[2022-09-25 13:22] LABS: Troponin I < 0.012 ng/mL (0.01-0.034)
[2022-09-25] MEDS: ACETAMINOPHEN 325 MG TABLET 650 MG PO (14:45)
[2022-09-25] MEDS: diazePAM 5 MG TABLET PO (14:46)
[2022-09-25] MEDS: MAGNESIUM CHLORIDE 64 MG TABLET 128 MG PO (15:09)
[2022-09-25 16:57] LABS: UR Morphine/Opiate cutoff 300 Negative (Negative); Ur Creatinine Normal (Normal); Ur Specific Gravity Normal (Normal); Urine Amphetamines Negative (Negative); Urine Barbiturates Negative (Negative); Urine Benzodiazepines Positive (Negative); Urine Cocaine Negative (Negative); Urine MDMA Negative (Negative); Urine Methadone Negative (Negative); Urine Methamphetamines Negative (Negative); Urine Oxycodone Negative (Negative); Urine Phencyclidine Negative (Negative); Urine Tetrahydrocannabinol Negative (Negative); Urine Tricyclic Antidepressant Negative (Negative); Urine pH Normal (Normal)
[2022-09-25] MEDS: INSULIN LISPRO 100 UNIT/ML 3ML VIAL SUBCUT ×2 (17:31→20:52)
[2022-09-25 19:08] LABS: Troponin I < 0.012 ng/mL (0.01-0.034)
[2022-09-25] MEDS: INSULIN GLARGINE 100 UNIT/ML 3ML PEN 15 UNIT SUBCUT (20:52)
[2022-09-25] MEDS: LIDOCAINE PATCH 1 EACH ADH..PATCH TOP (20:52)
[2022-09-25] MEDS: LOSARTAN 50 MG TABLET PO (20:53)
[2022-09-25] MEDS: SODIUM CHLORIDE 0.9% FLUSH 10 ML IV (21:02)
--- NOTE | 2022-09-25 23:06 | PC.NURSE ---
Addendum entered by Kelli Monroe R.N. 09/25/22 23:56: During shift report patient reported having an ear worm describing that when awake he has a constant song playing over and over in his head; refers to it as auditory hallucinations. Original Note: Patient is alert and oriented. Endorsed 4/10 headache but reported is tolerable and improved from admission. Breath sounds CTA with RA sat of 100%; using home CPAP per home regimen HRR. Denied nausea. BT present and abdomen is soft; states he has a twinge in right flank with movement. Lidoderm patch applied at hs per MD order. Denied dysuria, freequency or urgency with urination and is continent. Independent with mobility. Reports chronic numbness is bilateral heels and on plantar surface of feet just below toes. Requested Afrin nasal spray so notified Patrice CARMONA, and reviewed home med list of saline nasal spray he uses at bedtime. She ordered Flonase as we do not have Afrin but when presented to patient he declined Flonase stating it has never worked for him. Fall risk score is moderate but since he is independent and steady on feet alarm is not in use; socks with garage door technician on provided to patient.
--- NOTE | 2022-09-26 | DI.MRI.S_ITS ---
PROCEDURE: MR HEAD/BRAIN WO CON INDICATIONS: severe headache TECHNIQUE: Noncontrast axial T1 spin echo, axial T2 fast spin echo, sagittal and axial FLAIR, coronal T2 fast spin echo, axial gradient echo, axial diffusion and ADC through the brain. COMPARISON: [facility], CT, CT HEAD/BRAIN WO CON, 09/25/2022, 9:10. FINDINGS: Image quality: Excellent. CSF Spaces: Basal cisterns are patent. No extra-axial fluid collections. Ventricles are normal in size and shape. Brain: No intracranial masses or hemorrhage. Haile/white matter interface is normal. Brainstem appears normal. Diffusion-weighted images demonstrate no acute ischemic insult. No chronic ischemic insults. Normal intravascular flow voids are present. Skull and face: Calvarium has normal marrow signal. Orbits appear normal. Sinuses: Sinuses and mastoids are clear. IMPRESSION: Unremarkable brain MRI. Normal appearing brain parenchyma. No evidence of acute intracranial process. Dictated by: Abilio Blanc M.D. on 09/26/2022 at 8:34 Approved by: Abilio Blanc M.D. on 09/26/2022 at 8:36
[2022-09-26] MEDS: ACETAMINOPHEN 325 MG TABLET 650 MG PO ×2 (03:15→11:05)
[2022-09-26] MEDS: diazePAM 5 MG TABLET PO (03:18)
[2022-09-26 03:21] VITALS: BP 140/82; PULSE 78; RESP 16; TEMP 36.6; O2SAT 96
[2022-09-26 07:05] LABS: Alanine Aminotransferase 46 IU/L (<50); Albumin 3.7 g/dL (3.5-5.0); Albumin Globulin Ratio 1.2 (1.0-2.8); Alkaline Phosphatase 78 U/L (38-126); Aspartate Aminotransferase 28 IU/L (17-59); BUN Creatinine Ratio 16.4 (6-22); Bilirubin Total 1.3 mg/dL (0.2-1.3); Blood Urea Nitrogen 9 mg/dL (9-20); Calcium 8.4 mg/dL (8.4-10.2); Carbon Dioxide 20 mmol/L (22-32); Chloride 103 mmol/L (98-107); Estimated Glomerular Filt Rate > 60 mL/min (>60); Glucose 226 mg/dL (70-100); HEMOLYSIS 18 (0-50); Potassium 3.9 mmol/L (3.4-5.1); Sodium 134 mmol/L (137-145); Total Protein 6.7 g/dL (6.3-8.2)
[2022-09-26 08:00] VITALS: BP 136/78; PULSE 87; RESP 17; TEMP 36.2; O2SAT 98
[2022-09-26 08:10] VITALS: BP 140/82; PULSE 96
[2022-09-26] MEDS: LOSARTAN 50 MG TABLET PO (08:10)
[2022-09-26] MEDS: INSULIN LISPRO 100 UNIT/ML 3ML VIAL SUBCUT (08:11)
--- NOTE | 2022-09-26 11:33 | DIET.CONS2 ---
Addendum entered by Marielle Shepard 09/26/22 11:37: I agree with note written by Manufacturing Maintenance Mechanic below. Original Note: Dietary Inpatient Consultation Note Admission Date: 09/25/2022 12:03 56 yo M admitted for migraine, pancartisis, HTN, referred to nutrition for diabetes education. Labs suggest sub optimally managed diabetes - high A1c of 10.7% and high glucose >200 in past yr. Pt presents with multiple barriers: 1. Stress: ?stress of life is going to kill me.? ?It will be a relief.? takes care of his two kids with autism, pt reports not suicidal, just overwhelmed. 2. Prednisone for inflammation increases blood glucose levels. 3. Diets for gallbladder removal and diabetes do not align. 4. PCP is in [place]. (Next appointment Oct 03) Pt explains that the things he used to do to control blood glucose no longer work. ?GI is a mess.? suggested digestive enzymes. Activity: elliptical. Used to do [employer]. Wants a personalized living manager nurse for accountability. Pt emphasized the need for accountability to make changes. Altered nutrition related laboratory values (A1c) r/t endocrine dysfunction and default managing self-care aeb A1c 10.7%, pt reports significant life stressors, previous chronic prednisone use, nutrition knowledge deficit. Interventions: 1. To support pts desire fitness accountability, provided resources for local personal trainers. 2. Recc pt to see diabetes RD to help find diet that works best for his conditions. 3. Provided carb counting for diabetes handout and will call PCP for referral for outpatient diabetes program. Diet: 09/25/22 Dinner Carbohydrate Consistent Diet Diet Modifications: Carbohydrate level: Medium (3 CHO) Bedtime snack: Yes Nutrition Percent Meal Consumed 75% 09/26/22 08:00 Electronically Signed by: Nella Harris 09/26/22 11:33 Clinical Dietitian [address] [id number]
--- NOTE | 2022-09-26 12:35 | PC.NURSE ---
Pt dressed for d/c home, driving self. Reviewed stroke education. Discussed d/c medications and last dose. Advised pt to get up slowly and to take recommended dose of Tylenol as per provider. Pt was taking 1,500 mg of acetaminophen Q6h. Reminded pt that recommended max dose is no more than 3,000mg/24hrs without risking damage to liver. Pt stated that he would try, but that he was going to take as much as he needed to feel better. Pt requested MRI results and disc was given. Pt denied further questions and was taken out via w/c to POV with all belongings @ 1200.
--- NOTE | 2022-09-26 12:36 | CM.DANOTE ---
DCP: Assessment: Patient is a 56 yo male who admitted via POV on 09/25/2022 with c/o headache persistant for 3 wks and c/o Right upper quadrant epigastric pain. He is noted to have diagnoses of hypertensive urgency, headache in the setting of anxiety, poorly controlled DM2, right flank pain and obstructive sleep apnea. Hx of HTN, DM2, COPD, MITCHELL and on CPAP. This CM met with pt in his room. Introduced self and role. Pt A+Ox4. He was sitting up in a chair in room. He confirms that he lives with his and five adult kids in [place]. He states that he works from home, he drives and he does not use DME. Pt also states that he his and he have a cabin on [address] and that he enjoys flying his plane there to get away when he can. Pt reports that he has 5 children ranging from age 16 to 23. Four of which have been diagnosed with Autism. He states that they receive services via telehealth since the start of [facility] through [facility] referrals and that the kids are at an age where they are often not compliant with their treatment options. Pt declined any further behavioral health resource support from this CM. He states that he and his are a team and that they have participated in counseling services to support with raising their children. PCP: Eliceo Bustos Payor: [employer] Plan: Home with when medically stable. Noemi Cabrera RN Case Manager Discharge Planning/Care Management CM Discharge Assessment Start: 09/26/22 12:30 Freq: Status: Active Protocol: Document 09/26/22 12:31 JEROD (Rec: 09/26/22 12:36 JEROD [id number]) Discharge Planning Assessment Assigned Radio Technician Noemi Cabrera RN Case Manager Advance Directives? No History Provided By Patient,Medical Record Has Patient been admitted in last 30 No days? Prior Living Arrangements House Household Members spouse,family,children Comment Pt reports that he has 5 children ranging from age 16 to 23. Four of which have been diagnosed with Autism. He states that they receive services via telehealth through [facility] referrals Type of transporation used prior to Drives own vehicle admit Independent with ADL's Yes Is patient alert and oriented? Yes Caregiver for Another Yes: His Children Barriers to Discharge No Discharge Plan Home Whiteboard Updated in Patient Room with Yes name and ext. # of Radio Technician Review Status In Process Next Review Type Continued Stay Review
--- NOTE | 2022-09-26 15:49 | PM.DS.1 ---
History of Present Illness History of Present Illness Date Patient Seen: 09/26/22 Chief complaint: migraine, pancartisis, high blood pressure, Narrative: Jean Mendez is a 56-year-old male with past medical history of HTN, anxiety, DM2, COPD, MITCHELL on CPAP, cholecystectomy, exercise induced asthma, and HLD who presents with a severe headache and found to have BP up to 202/106. Patient reports lots of stress in his life. He has remote history of presumed temporal arteritis for which he see's Dr. Wong at [facility] rheumatology. He had left sided headaches with visual changes at that time which responded very well to po prednisone. He says this headache feels different. Currently headache has improved with valium, BP improvement and patient appears more calm and relaxed. He also notes a pain in his right flank, for which he had an MRCP done in the ED which was negative. He says the pain feels identical to his previous gallstone pain in the past, for which he has had a cholecystectomy. Pain is worse with movement and in certain positions, but better at rest. Patient denies CP, NV, abd pain, diarrhea, visual changes or aura. Discharge Providers Provider Date of admission: 09/25/22 12:03 Discharge Date: 09/26/22 Primary care physician: Eliceo Bustos PA-C Consults: 09/25/22 20:20 Consult to Dietitian, Adult Routine Comment: Reason For Exam: A1c 10.7% Discharge provider: Damian Joyce DO Summary Hospital Course Discharge Diagnosis: # hypertensive urgency, headache in the setting of anxiety -blood pressure up to 202/106 in ED, 150/82 with lisinopril and Xanax given -patient notes chronic headaches but this acute headache felt different, previously worked up for giant cell arteritis which was inconclusive.? Could be related to anxiety or MITCHELL. -patient not on home blood pressure medications, but per chart has several previous blood pressure readings hypertension -started losartan 50 mg b.i.d. and improved to 130-140's systolic, discharged on losartan -start Valium 5 mg q.6 as needed for anxiety -MRI brain and CT head returned normal -oxycodone, ibuprofen and Tylenol as needed for pain -troponin neg x2 # poorly controlled DM2 -A1c 10.7% -hold home metformin -lantus 15 units nightly and med dose SSI given -broom maker consulted -patient with speak with PCP about GLP-1 for diabetes and weight loss, prefers to wait on adding glipizide or insulin at this time # right flank pain -appears MSK related -MRCP negative -lidoderm patch daily # MITCHELL -continue CPAP use Hospital Course: Admitted for right flank pain and hypertensive urgency with headache. MRCP done which was normal. MR brain was normal. He was not on BP meds so started on losartan 50 BID with good effect. He may need to add a second agent with PCP. His A1c was very high at 10.7% and only on metformin. Suggested he speak with his PCP about ozempic, as patient not interested in starting insulin at this time. He should also explore anti-anxiety meds as he was very stressed and anxious. 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 Time Spent with Patient Time spent: Greater than 30 minutes Exam Vital Signs (past 8 hours): - 09/26/22 08:10 09/26/22 08:00 Temperature 97.1 F L Pulse Rate 96 H 87 Respiratory Rate 17 Blood Pressure 140/82 136/78 Pulse Oximetry 98 Oxygen Flow Rate 0 Oxygen Delivery Method Room Air,CPAP Oxygen Flow Rate 0 Narrative Exam Narrative: GEN: anxious, obese HEENT: moist mucous membranes, PERRL NECK: trachea midline, no JVD CV: regular rate and rhythm, no murmurs PULM: clear bilaterally ABD: soft, nontender, nondistended, no organomegaly EXT: warm and well perfused with no edema NEURO: awake, alert, oriented, no focal deficits Objective Labs 09/25/22 06:35 09/26/22 06:24 Labs: Laboratory Results - last 24 hr 09/25/22 09/25/22 09/26/22 16:10 18:35 06:24 Sodium 134 L Potassium 3.9 Chloride 103 Carbon Dioxide 20 L BUN 9 Creatinine 0.55 L Estimated GFR > 60 BUN/Creatinine Ratio 16.4 Glucose 226 H Calcium 8.4 Total Bilirubin 1.3 AST 28 ALT 46 Alkaline Phosphatase 78 Troponin I < 0.012 Total Protein 6.7 Albumin 3.7 Globulin 3.0 Albumin/Globulin Ratio 1.2 U Opiates 300ng/mL cut Negative Ur Oxycodone Screen Negative Urine Methadone Screen Negative Ur Barbiturates Screen Negative U Tricyclic Antidepress Negative Ur Phencyclidine Scrn Negative Ur Amphetamines Screen Negative U Methamphetamines Scrn Negative Ur MDMA Scrn (Ecstasy) Negative U Benzodiazepines Scrn Positive H Urine Cocaine Screen Negative U Marijuana (THC) Screen Negative PFSH Medical History Asthma COPD (chronic obstructive pulmonary disease) COVID-19 virus infection (01/02/22) Depression Diabetes Elevated cholesterol Gallbladder disease Giant cell arteritis Hx of migraine headaches MITCHELL on CPAP Pneumonia Sinus drainage Surgical History H/O vasectomy (2004) Social History household members: spouse, family and children Smoking Status: Never smoker alcohol intake: never Discharge Plan Discharge Plan Patient Disposition: Home Provider Discharge Comment: You were admitted for high blood pressure, headaches and high blood sugars. I've put you on a blood pressure medication called losartan which you'll take twice a day. You should talk with your PCP about starting ozempic for your diabetes. Also see if buspar is ok with the FAA which is an anti-anxiety med. Discharge orders & Medications Prescriptions: New losartan 50 mg Tablet 50 mg PO BID 90 Days Qty: 180 0RF Continued metformin 500 mg tablet extended release 24 hr 1,000 mg PO BID Label Comments: TAKE 2 TABLETS BY MOUTH TWICE DAILY Rx Instructions: 2 tabs bid sodium chloride 0.65 % Mist 2 spray INTRANASAL BEDTIME Label Comments: one spray per nostril Claritin-D 24 Hour 10-240 mg Tablet Extended Release 24 Hr 1 tab PO DAILY ibuprofen [Advil] 200 mg Tablet 600 mg PO BID Changed acetaminophen 500 mg Capsule 500 mg PO Q6H PRN (Reason: Pain (Scale Score 4-6)) Qty: 30 0RF Follow up/Referrals: Luis Bustos PA-C [Primary Care Provider] - Visit Report/Discharge Packet Stand Alone Forms: Patient Portal/API, Stroke Signs & Symptoms Discharge Data Primary Care Provider: Luis Bustos Attending Provider: Damian Joyce
== END 2022-09-26 12:00 | disposition home or self-care (01) ==
LOC: ED 07:43 → AC 12:04
PROVIDERS: Emergency Medicine; Admitting Provider Student in an Organized Health Care Education/Training Program; Emergency Provider Emergency Medicine; PCP Physician Assistant; Referring Provider Emergency Medicine; Visit Provider Student in an Organized Health Care Education/Training Program
DX: I16.0 Hypertensive urgency (principal); R10.11 Right upper quadrant pain; R51.9 Headache, unspecified; G47.33 Obstructive sleep apnea (adult) (pediatric); F41.9 Anxiety disorder, unspecified; E11.65 Type 2 diabetes mellitus with hyperglycemia; Z79.84 Long term (current) use of oral hypoglycemic drugs; Z20.822 Contact with and (suspected) exposure to COVID-19
CPT/HCPCS: 36415; 70450; 70551; 74183; 76705; 80053; 80305; 82962; 83036; 83690; 83735; 84484; 85025; 87635; 93005; 96372; 99284; C9803; G0378; A9579; J1815

== ENCOUNTER 2022-11-28 11:10 | Emergency (ER) | payer OTHER, SELFPAY ==
[2022-09-25 14:03] VITALS: BMI 35.3
[2022-11-28 11:23] VITALS: BP 153/78; PULSE 61; RESP 18; TEMP 36.7; O2SAT 99; BMI 34.0
--- NOTE | 2022-11-28 11:31 | DI.CT.S_ITS ---
PROCEDURE: CT HEAD/BRAIN WO CON INDICATIONS: right sided headache + confusion TECHNIQUE: Noncontrast 4.5 mm thick angled axial sections acquired from the foramen magnum to the vertex, with coronal and sagittal reformats. For radiation dose reduction, the following was used: automated exposure control, adjustment of mA and/or kV according to patient size. COMPARISON: [facility], CT, CT HEAD/BRAIN WO CON, 09/25/2022, 9:10. FINDINGS: Image quality: Excellent. CSF spaces: Basal cisterns are patent. No extra-axial fluid collections. Ventricles are normal in size and shape. Brain: No midline shift. No intracranial masses or hemorrhage. No area of hypodensity in a large vascular distribution to suggest acute infarction. Distal intracranial atherosclerotic calcifications. Skull and face: Calvarium and visualized facial bones are intact, without suspicious lesions. Sinuses: Visualized sinuses and mastoids are clear. IMPRESSION: No acute intracranial abnormality. Dictated by: Rehan Siddiqui M.D. on 11/28/2022 at 12:11 Approved by: Rehan Siddiqui M.D. on 11/28/2022 at 12:13
--- NOTE | 2022-11-28 11:32 | DI.MRI.S_ITS ---
PROCEDURE: MR STROKE Pre- and post-contrast brain MRI, non-contrast brain MR angiogram, pre- and postcontrast neck MR angiogram INDICATIONS: confusion now resolved (allergy to contrast) TECHNIQUE: Brain: Noncontrast axial T1 spin echo, axial T2 fast spin echo, sagittal and axial FLAIR, coronal T2 fast spin echo, axial gradient echo, axial diffusion and ADC through the brain. After the administration of contrast, axial 3D VIBE of the cranial vasculature and brain. Brain MRA: Non-contrast 3-D time of flight MR angiogram, with multiple vquoxtj-behtkzyvd-gnpcezztkl (MIP) reformats performed. Neck MRA: Axial and sagittal TruFISP through the neck. Coronal dynamic MR angiogram during administration of contrast in the arterial and venous phases, with 3-dimenstional xurdjjb-fzcxxigmb-idkczrycqh (MIP) reformats constructed from subtraction images. COMPARISON: [facility], MR, MR HEAD/BRAIN WO CON, 09/26/2022, 7:32. [facility], CT, CT HEAD/BRAIN WO CON, 11/28/2022, 11:59. FINDINGS: Image quality: Excellent. BRAIN: CSF spaces: Ventricles are normal in size and shape. Basal cisterns are patent. No extra-axial fluid collections. Brain: No intracranial bleeds or mass effects. Haile-white matter interface is normal. Diffusion weighted images show no acute ischemic insults. Brainstem appears normal. Normal intravascular flow voids are present. No abnormal intracranial enhancement. Skull and face: Calvarial marrow signal is normal. Orbits appear normal. Sinuses: Sinuses and mastoids are clear. BRAIN MR ANGIOGRAM: Anterior circulation: Intracranial internal carotid arteries are normal in size and enhancement. The flow within the paired anterior cerebral arteries is normal and symmetric. The flow within the middle cerebral arteries is normal and symmetric. The anterior communicating artery is seen. No stenoses, occlusions, or aneurysms. Posterior circulation: The visualized portions of the vertebral arteries demonstrate normal caliber, and join to form a normal appearing basilar artery. The flow within the posterior cerebral arteries is normal and symmetric. No stenoses, occlusions, or aneurysms. NECK MR ANGIOGRAM: Carotids: Great vessels demonstrate a conventional anatomy as they arise from the aortic arch. The origins of the common carotid arteries appear patent. The calibers and courses of both common carotid arteries are normal. The bifurcation regions appear normal bilaterally. The internal carotid arteries demonstrate normal course. Moderate tortuosity is seen of the right internal carotid artery and there is mild tortuosity of the left internal carotid artery. Posterior circulation: The origins of the vertebral arteries appear patent. More superior portions of both vertebral arteries demonstrate normal course and caliber, and join to form a normal appearing basilar artery. Miscellaneous: Subclavian arteries appear patent. Pre-contrast images through the neck show no soft tissue abnormalities. IMPRESSION: BRAIN MRI: No masses or abnormal enhancement can be seen. No findings of acute or subacute infarction can be seen. BRAIN MR ANGIOGRAM: No significant intracranial arterial abnormality is seen. NECK MR ANGIOGRAM: Within the arteries of the neck, no hemodynamically significant stenosis can be seen. Dictated by: Josh Plunkett M.D. on 11/28/2022 at 14:20 Approved by: Josh Plunkett M.D. on 11/28/2022 at 14:23
[2022-11-28 11:42] LABS: INR 1.1 (0.9-1.3); Prothrombin Time 12.3 SECONDS (10.1-12.7)
[2022-11-28 11:45] LABS: Add Manual Diff / Slide Review NO; Basophils Absolute Auto 100 /uL (0-100); Basophils Percent Auto 0.9 % (0-2); Eosinophils Absolute Auto 100 /uL (0-450); Eosinophils Percent Auto 1.7 % (2-4); Hematocrit 38.4 % (41-53); Hemoglobin 13.4 g/dL (13.5-17.5); Lymphocytes Absolute Auto 2100 /uL (1100-4500); Lymphocytes Percent Auto 23.7 % (25-40); Mean Corpuscular Hemoglobin 29.8 PG (26-34); Mean Corpuscular Volume 85.3 fL (80-100); Monocytes Absolute Auto 700 /uL (0-900); Monocytes Percent Auto 7.8 % (3-14); Neutrophils Absolute Auto 5800 /uL (1500-7000); Neutrophils Percent Auto 65.9 % (50-75); PTT Partial Thromboplastin Tim 33 SECONDS (26-36); Platelet Count 205 X10^3/uL (150-400); Red Cell Distribution Width 14.1 % (11.6-14.8); White Blood Cell Count 8.8 X10^3/uL (4.5-11.0)
[2022-11-28 12:01] LABS: Alanine Aminotransferase 45 IU/L (<50); Albumin 4.2 g/dL (3.5-5.0); Albumin Globulin Ratio 1.6 (1.0-2.8); Alkaline Phosphatase 46 U/L (38-126); Aspartate Aminotransferase 40 IU/L (17-59); BUN Creatinine Ratio 17.5 (6-22); Bilirubin Total 1.7 mg/dL (0.2-1.3); Blood Urea Nitrogen 14 mg/dL (9-20); Calcium 9.5 mg/dL (8.4-10.2); Carbon Dioxide 28 mmol/L (22-32); Chloride 101 mmol/L (98-107); Creatine Kinase 122 U/L (55-170); Estimated Glomerular Filt Rate > 60 mL/min (>60); Ethanol (ETOH) < 10 mg/dL; Globulin 2.6 g/dL (1.7-4.1); Glucose 134 mg/dL (70-100); HEMOLYSIS 22 (0-50); Potassium 4.3 mmol/L (3.4-5.1); Sodium 138 mmol/L (137-145); Total Protein 6.8 g/dL (6.3-8.2)
[2022-11-28 12:04] VITALS: PULSE 63; RESP 14; O2SAT 99
[2022-11-28 12:05] VITALS: BP 136/75; PULSE 58; RESP 14; O2SAT 99
[2022-11-28 12:11] LABS: Troponin I < 0.012 ng/mL (0.01-0.034)
--- NOTE | 2022-11-28 12:17 | PC.NURSE ---
IV attempted 2 times, pt pulled away shouting ow, and explicit words begining with F. after CT scan, spoke with pt about need for IV and trying to relax, when he tenses his muscles and jerks his arms, it makes us have a harder time getting the IV in. Pt states he does not want an IV, since he is not getting a CT with contrast he doesnt think he needs it. provider notified.
--- NOTE | 2022-11-28 12:20 | ED_ITS ---
HPI - Neuro Symptoms/Deficit General Chief Complaint: Neuro Symptoms/Deficit Stated Complaint: couldn't read the computer screen, no perception Time Seen by Provider: 11/28/22 11:20 Source: patient and family Mode of arrival: Ambulatory History of Present Illness HPI Narrative: Patient is a 57-year-old male history of diabetes, giant cell temporal arteritis, hypertension, presenting today with sudden onset of some confusion while looking at the computer. He reports that he was working on the computer for about 3 hours developed some confusion like he was not sure what he was looking any longer developed a right-sided headache. He told his that they needed to go to the emergency department he had no slurring of speech no facial droop no numbness tingling or weakness. Knowledge having some mild right-sided headache. He says he woke up in his normal state of health without any fever or illness. He was recently admitted in September 2022 for hypertensive urgency with elevated blood pressure. He said he was previously diagnosed with giant cell arteritis and put on high-dose prednisone which caused him to have diabetes. He denies any loss of vision just confusion of what he was looking at on the screen. He is no prior history of ocular migraines but does have a history of headaches. On Anticoagulants: No Related Data Home Medications Medication Instructions Recorded Confirmed ibuprofen 200 mg tablet (Advil) 600 mg PO BID pain 05/14/22 09/25/22 loratadine-pseudoephedrine ER 10 1 tab PO DAILY 05/14/22 09/25/22 mg-240 mg tablet,extended [id number] (Claritin-D 24 Hour) metformin 500 mg tablet,extended 1,000 mg PO BID 05/14/22 09/25/22 release 24 hr sodium chloride 0.65 % nasal mist 2 spray intranasal BEDTIME 05/14/22 09/25/22 Previous Rx's Medication Instructions Recorded acetaminophen 500 mg capsule 500 mg PO Q6H PRN Pain (Scale 09/26/22 Score 4-6) #30 caps losartan 50 mg tablet 50 mg PO BID 90 days #180 tabs 09/26/22 Allergies Allergy/AdvReac Type Severity Reaction Status Date / Time aspirin Allergy Severe Anaphylaxis Verified 11/28/22 11:27 Iodinated Contrast Media Allergy Severe Fever Verified 11/28/22 11:27 Beef Containing Products Allergy Verified 11/28/22 11:27 tetanus and diphtheria AdvReac Severe Fever Verified 11/28/22 11:27 toxoids Review of Systems Review of Systems ROS Unobtainable: All systems reviewed & are unremarkable except as noted in HPI and below Hematologic/Lymphatic On Anticoagulants: No Patient History Medical History Asthma COPD (chronic obstructive pulmonary disease) COVID-19 virus infection (01/02/22) Depression Diabetes Elevated cholesterol Gallbladder disease Giant cell arteritis Hx of migraine headaches MITCHELL on CPAP Pneumonia Sinus drainage Surgical History H/O vasectomy (2004) Social History household members: spouse, family and children Smoking Status: Never smoker alcohol intake: never Smoking Status: Never smoker alcohol intake frequency: holidays/special occasions only Substance Use Type: does not use Exam Initial Vital Signs Initial Vital Signs: Vital Signs Temperature 98.1 F 11/28/22 11:23 Pulse Rate 61 11/28/22 11:23 Respiratory Rate 18 11/28/22 11:23 Blood Pressure 153/78 H 11/28/22 11:23 Pulse Oximetry 99 11/28/22 11:23 Oxygen Delivery Method Room Air 11/28/22 11:23 GENERAL: Alert pleasant 57-year-old male and in no acute distress. HEENT: Head atraumatic,EOMI, pupils reactive, face symmetric, moist mucous membranes CARDIOVASCULAR: Regular rate and rhythm without murmurs, rubs or gallops. RESPIRATORY: Breath sounds equal bilaterally, no wheezes rales or rhonchi. ABDOMEN: Soft, nontender. Normoactive bowel sounds all 4 quadrants. No guarding or rebound. EXTREMITIES: Normal range of motion, no clubbing or edema. Neurovascularly intact NEUROLOGICAL: Alert and oriented x4.Normal gait and speech. Cranial nerves II through XII grossly intact. Good [id number], good [id number], strength equal bilaterally, no dysarthria or aphasia, sensation in tact to soft touch bilaterally, no visual changes, no facial droop SKIN: Warm, dry, no laceration, no petechiae, no rashes or lesions. Scores NIH Stroke Scale Level of Conciousness: Alert, keenly responsive Ask month/age: Answers both questions correctly. Open/close eyes, close hand: Performs both tasks correctly Best gaze horizontal: Normal Visual ruiz: No visual loss Facial palsy: Normal symetrical movement Left arm drift: No drift for full 10 sec Right arm drift: No drift for full 10 sec Left leg drift: No drift for full 5 sec Right leg drift: No drift for full 5 sec Limb ataxia: Absent Sensory on face/arms/legs: Normal, no sensory loss Best language: No aphasia, normal Dysarthria: Normal Extinction or inattention: No abnormality Total NIH Stroke scale score: 0 Course Orders Ordered: ED Orders 11/28/22 11:26 Complete Blood Count AUTO DIFF Stat Comprehensive Metabolic Panel Stat Ethanol (ETOH) Stat PTT Partial Thromboplastin Chele Stat Prothrombin Time INR Stat Troponin & CK Cardiac Panel Stat 11/28/22 11:31 CT head/brain wo con Stat 11/28/22 11:32 MR stroke Stat 11/28/22 11:33 EKG-12 Lead Stat 11/28/22 15:26 Urine Drug Screen, Rapid Stat Vital Signs Vital signs: Vital Signs - 8 hr 11/28/22 11:23 11/28/22 12:04 11/28/22 12:05 Temperature 98.1 F Pulse Rate 61 63 Respiratory Rate 18 14 Blood Pressure 153/78 H 136/75 Pulse Oximetry 99 99 Oxygen Delivery Method Room Air 11/28/22 12:05 11/28/22 12:30 11/28/22 12:30 Temperature Pulse Rate 58 L 59 L Respiratory Rate 14 15 Blood Pressure 140/78 Pulse Oximetry 99 97 Oxygen Delivery Method 11/28/22 13:00 11/28/22 13:00 11/28/22 15:59 Temperature Pulse Rate 57 L 72 Respiratory Rate 14 16 Blood Pressure 131/72 147/91 H Pulse Oximetry 98 97 Oxygen Delivery Method Room Air MDM - Neuro Symptoms/Deficit Lab Data 11/28/22 11:26 11/28/22 11:26 Labs: Lab Results 11/28/22 11/28/22 11/28/22 Range/Units 11:26 11:26 11:26 WBC 8.8 (4.5-11.0) X10^3/uL RBC 4.50 (4.5-5.9) X10^6/uL Hgb 13.4 L (13.5-17.5) g/dL Hct 38.4 L (41-53) % MCV 85.3 (80-100) fL MCH 29.8 (26-34) PG MCHC 35.0 (30-36) % RDW 14.1 (11.6-14.8) % Plt Count 205 (150-400) X10^3/uL Neut % (Auto) 65.9 (50-75) % Lymph % (Auto) 23.7 L (25-40) % [place] % (Auto) 7.8 (3-14) % Eos % (Auto) 1.7 L (2-4) % Baso % (Auto) 0.9 (0-2) % Neut # (Auto) 5800 (3272-1513) /uL Lymph # (Auto) 2100 (6340-1915) /uL [place] # (Auto) 700 (0-900) /uL Eos # (Auto) 100 (0-450) /uL Baso # (Auto) 100 (0-100) /uL PT 12.3 (10.1-12.7) SECONDS INR 1.1 (0.9-1.3) APTT 33 (26-36) SECONDS Sodium 138 (137-145) mmol/L Potassium 4.3 (3.4-5.1) mmol/L Chloride 101 (98-107) mmol/L Carbon Dioxide 28 (22-32) mmol/L BUN 14 (9-20) mg/dL Creatinine 0.80 (0.66-1.25) mg/dL Estimated GFR > 60 (>60) mL/min BUN/Creatinine Ratio 17.5 (6-22) Glucose 134 H (70-100) mg/dL Calcium 9.5 (8.4-10.2) mg/dL Total Bilirubin 1.7 H (0.2-1.3) mg/dL AST 40 (17-59) IU/L ALT 45 (<50) IU/L Alkaline Phosphatase 46 (38-126) U/L Total Creatine Kinase 122 (55-170) U/L CK-MB (CK-2) 1.25 (<2.37) ng/mL CK-MB (CK-2) Rel Index 1.0 L (1.5-5.0) % Troponin I < 0.012 (0.01-0.034) ng/mL Total Protein 6.8 (6.3-8.2) g/dL Albumin 4.2 (3.5-5.0) g/dL Globulin 2.6 (1.7-4.1) g/dL Albumin/Globulin Ratio 1.6 (1.0-2.8) U Opiates 300ng/mL cut (Negative) Ur Oxycodone Screen (Negative) Urine Methadone Screen (Negative) Ur Barbiturates Screen (Negative) U Tricyclic Antidepress (Negative) Ur Phencyclidine Scrn (Negative) Ur Amphetamines Screen (Negative) U Methamphetamines Scrn (Negative) Ur MDMA Scrn (Ecstasy) (Negative) U Benzodiazepines Scrn (Negative) Urine Cocaine Screen (Negative) U Marijuana (THC) Screen (Negative) Ethyl Alcohol < 10 ( - 10) mg/dL 11/28/22 Range/Units 15:26 WBC (4.5-11.0) X10^3/uL RBC (4.5-5.9) X10^6/uL Hgb (13.5-17.5) g/dL Hct (41-53) % MCV (80-100) fL MCH (26-34) PG MCHC (30-36) % RDW (11.6-14.8) % Plt Count (150-400) X10^3/uL Neut % (Auto) (50-75) % Lymph % (Auto) (25-40) % [place] % (Auto) (3-14) % Eos % (Auto) (2-4) % Baso % (Auto) (0-2) % Neut # (Auto) (0054-1452) /uL Lymph # (Auto) (1745-8217) /uL [place] # (Auto) (0-900) /uL Eos # (Auto) (0-450) /uL Baso # (Auto) (0-100) /uL PT (10.1-12.7) SECONDS INR (0.9-1.3) APTT (26-36) SECONDS Sodium (137-145) mmol/L Potassium (3.4-5.1) mmol/L Chloride (98-107) mmol/L Carbon Dioxide (22-32) mmol/L BUN (9-20) mg/dL Creatinine (0.66-1.25) mg/dL Estimated GFR (>60) mL/min BUN/Creatinine Ratio (6-22) Glucose (70-100) mg/dL Calcium (8.4-10.2) mg/dL Total Bilirubin (0.2-1.3) mg/dL AST (17-59) IU/L ALT (<50) IU/L Alkaline Phosphatase (38-126) U/L Total Creatine Kinase (55-170) U/L CK-MB (CK-2) (<2.37) ng/mL CK-MB (CK-2) Rel Index (1.5-5.0) % Troponin I (0.01-0.034) ng/mL Total Protein (6.3-8.2) g/dL Albumin (3.5-5.0) g/dL Globulin (1.7-4.1) g/dL Albumin/Globulin Ratio (1.0-2.8) U Opiates 300ng/mL cut Negative (Negative) Ur Oxycodone Screen Negative (Negative) Urine Methadone Screen Negative (Negative) Ur Barbiturates Screen Negative (Negative) U Tricyclic Antidepress Negative (Negative) Ur Phencyclidine Scrn Negative (Negative) Ur Amphetamines Screen Negative (Negative) U Methamphetamines Scrn Negative (Negative) Ur MDMA Scrn (Ecstasy) Negative (Negative) U Benzodiazepines Scrn Negative (Negative) Urine Cocaine Screen Negative (Negative) U Marijuana (THC) Screen Negative (Negative) Ethyl Alcohol ( - 10) mg/dL Urine Dip Bedside Urine Glucose Negative Bedside Urine Bilirubin - Negative Bedside Urine Ketone - Negative Urine Specific [place] 1.015 Bedside Urine Occult Blood - Negative Bedside Urine pH 6.0 Bedside Urine Protein - Negative Bedside Urine Urobilinogen - Negative Bedside Urine Nitrite - Negative Bedside Urine Leukocytes - Negative Esterase Imaging Data CT scan - head: Radiologist's Impression: PROCEDURE:? CT HEAD/BRAIN WO CON ? INDICATIONS:? right sided headache + confusion ? TECHNIQUE:? Noncontrast 4.5 mm thick angled axial sections acquired from the foramen magnum to the vertex, with coronal and sagittal reformats.? For radiation dose reduction, the following was used:? automated exposure control, adjustment of mA and/or kV according to patient size.? ? COMPARISON:? [facility], CT, CT HEAD/BRAIN WO CON, 09/25/2022, 9:10. ? FINDINGS:? Image quality:? Excellent.? ? CSF spaces:? Basal cisterns are patent.? No extra-axial fluid collections.? Ventricles are normal in size and shape.? ? Brain:? No midline shift.? No intracranial masses or hemorrhage.? No area of hypodensity in a large vascular distribution to suggest acute infarction.? Distal intracranial atherosclerotic calcifications. ? Skull and face:? Calvarium and visualized facial bones are intact, without suspicious lesions.? ? Sinuses:? Visualized sinuses and mastoids are clear.? ? IMPRESSION:? No acute intracranial abnormality. ? ? Dictated by: Rehan Siddiqui M.D. on 11/28/2022 at 12:11? MR: Radiologist's Impression: PROCEDURE:? MR STROKE Pre- and post-contrast brain MRI, non-contrast brain MR angiogram, pre- and postcontrast neck MR angiogram ? INDICATIONS:? confusion now resolved (allergy to contrast) ? TECHNIQUE:? Brain:? Noncontrast axial T1 spin echo, axial T2 fast spin echo, sagittal and axial FLAIR, coronal T2 fast spin echo, axial gradient echo, axial diffusion and ADC through the brain.? After the administration of contrast, axial 3D VIBE of the cranial vasculature and brain.? Brain MRA:? Non-contrast 3-D time of flight MR angiogram, with multiple nasebnw-hzefqjxab-nxjidkdcpa (MIP) reformats performed.? Neck MRA:? Axial and sagittal TruFISP through the neck.? Coronal dynamic MR angiogram during administration of contrast in the arterial and venous phases, with 3- dimenstional bxtdcwk-ddzgaylyi-wxiqynjutx (MIP) reformats constructed from subtraction images.? ? COMPARISON:? [facility], MR, MR HEAD/BRAIN WO CON, 09/26/2022, 7:32.? [facility], CT, CT HEAD/BRAIN WO CON, 11/28/2022, 11:59. ? FINDINGS:? Image quality:? Excellent.? ? BRAIN:? CSF spaces:? Ventricles are normal in size and shape.? Basal cisterns are patent.? No extra-axial fluid collections.? Brain:? No intracranial bleeds or mass effects.? Haile-white matter interface is normal.? Diffusion weighted images show no acute ischemic insults.? Brainstem appears normal.? Normal intravascular flow voids are present.? No abnormal intracranial enhancement.? Skull and face:? Calvarial marrow signal is normal.? Orbits appear normal.? Sinuses:? Sinuses and mastoids are clear.? ? BRAIN MR ANGIOGRAM:? Anterior circulation:? Intracranial internal carotid arteries are normal in size and enhancement.? The flow within the paired anterior cerebral arteries is normal and symmetric.? The flow within the middle cerebral arteries is normal and symmetric.? The anterior communicating artery is seen.? No stenoses, occlusions, or aneurysms.? Posterior circulation:? The visualized portions of the vertebral arteries demonstrate normal caliber, and join to form a normal appearing basilar artery.? The flow within the posterior cerebral arteries is normal and symmetric.? No stenoses, occlusions, or aneurysms.? ? NECK MR ANGIOGRAM:? Carotids:? Great vessels demonstrate a conventional anatomy as they arise from the aortic arch.? The origins of the common carotid arteries appear patent.? The calibers and courses of both common carotid arteries are normal.? The bifurcation regions appear normal bilaterally.? The internal carotid arteries demonstrate normal course.? Moderate tortuosity is seen of the right internal carotid artery and there is mild tortuosity of the left internal carotid artery.? Posterior circulation:? The origins of the vertebral arteries appear patent.? More superior portions of both vertebral arteries demonstrate normal course and caliber, and join to form a normal appearing basilar artery.? Miscellaneous:? Subclavian arteries appear patent.? Pre-contrast images through the neck show no soft tissue abnormalities.? ? ? IMPRESSION:? ? BRAIN MRI:? No masses or abnormal enhancement can be seen. ? No findings of acute or subacute infarction can be seen. ? ? BRAIN MR ANGIOGRAM:? No significant intracranial arterial abnormality is seen.? ? ? NECK MR ANGIOGRAM:? Within the arteries of the neck, no hemodynamically significant stenosis can be seen. ? ? ? Dictated by: Josh Plunkett M.D. on 11/28/2022 at 14:20 ? ? ECG Data Interpretation: Sinus rhythm rate 73 IL interval 162 QRS [address] changes, Q-wave noted in lead 3 and AVF similar to previous EKGs 09/25/2022 MDM Narrative Medical decision making narrative: Patient was looking at a computer screen for about 3 hours developed some confusion than right-sided headache. NIH stroke scale is 0 symptoms improved by the time he got to the ED. head CT noncontrast is negative wanted to get a CT angio although he has no large vessel occlusion symptoms however patient adamantly refuses any IV contrast says it monsivais he is offered Solu-Medrol and Benadryl as standard prophylactic medications prior to CT contrast and he still does not want it. However again my suspicion for large vessel occlusion is extremely low. MRI is ordered without contrast. Blood work is overall reassuring. Patient had an MRI which is negative. I actually suspect this is more of an ocular migraine. Patient now been in the ER for multiple hours and is asymptomatic. Prior history of giant cell arteritis this does not sound like previous giant cell arteritis symptoms. Discharge Plan Departure Patient Disposition: Home Clinical Impression: Ocular migraine Instructions: Migraine -- Adult Activity Restrictions/Additional Instructions: *You have been diagnosed with ocular migraine *What to do: At this time your MRI is negative this is unlikely stroke her symptoms are most consistent with an ocular migraine *Continue to take medications as directed *Follow up with your primary care provider in 2-3 days or call [phone] *Return to ER if you should have increasing headache persistent vomiting nausea numbness tingling weakness or or any new, worsening or concerning symptoms Prescriptions: No Action metformin 500 mg tablet extended release 24 hr 1,000 mg PO BID Patient Comments: TAKE 2 TABLETS BY MOUTH TWICE DAILY Rx Instructions: 2 tabs bid sodium chloride 0.65 % Mist 2 spray INTRANASAL BEDTIME Patient Comments: one spray per nostril Claritin-D 24 Hour 10-240 mg Tablet Extended Release 24 Hr 1 tab PO DAILY ibuprofen [Advil] 200 mg Tablet 600 mg PO BID losartan 50 mg Tablet 50 mg PO BID 90 Days Qty: 180 0RF acetaminophen 500 mg Capsule 500 mg PO Q6H PRN (Reason: Pain (Scale Score 4-6)) Qty: 30 0RF Referrals: Luis Bustos PA-C [Primary Care Provider] - Stand Alone Forms: Patient Portal/API
[2022-11-28 12:26] LABS: Creatine Kinase MB 1.25 ng/mL (<2.37)
[2022-11-28 12:30] VITALS: BP 140/78; PULSE 59; RESP 15; O2SAT 97
[2022-11-28 13:00] VITALS: BP 131/72; PULSE 57; RESP 14; O2SAT 98
[2022-11-28 15:51] LABS: UR Morphine/Opiate cutoff 300 Negative (Negative); Ur Creatinine Normal (Normal); Ur Specific Gravity Normal (Normal); Urine Amphetamines Negative (Negative); Urine Barbiturates Negative (Negative); Urine Benzodiazepines Negative (Negative); Urine Cocaine Negative (Negative); Urine MDMA Negative (Negative); Urine Methadone Negative (Negative); Urine Methamphetamines Negative (Negative); Urine Oxycodone Negative (Negative); Urine Phencyclidine Negative (Negative); Urine Tetrahydrocannabinol Negative (Negative); Urine Tricyclic Antidepressant Negative (Negative); Urine pH Normal (Normal)
[2022-11-28 15:59] VITALS: BP 147/91; PULSE 72; RESP 16; O2SAT 97
== END 2022-11-28 16:00 | disposition home or self-care (01) ==
PROVIDERS: Emergency Provider Emergency Medicine; PCP Physician Assistant
DX: G43.109 Migraine with aura, not intractable, without status migrainosus (principal); R41.0 Disorientation, unspecified; R07.9 Chest pain, unspecified
CPT/HCPCS: 70450; 70548; 70553; 80053; 80305; 80320; 81003; 82550; 82553; 84484; 85025; 85610; 85730; 93005; 99284; A9579

== ENCOUNTER 2023-08-29 08:30 | Emergency (ER) | payer OTHER, SELFPAY ==
[2022-09-25 14:03] VITALS: BMI 35.3
[2023-08-29] VITALS (11 sets, daily range): BP systolic 145–191; BP diastolic 70–91; PULSE 56–70; RESP 16–18; TEMP 36.4–37; O2SAT 95–99; BMI 33.0
--- NOTE | 2023-08-29 08:57 | ED.GENADULT ---
HPI - General Adult General Chief complaint: Back Pain/Injury Stated complaint: pain lower back Time Seen by Provider: 08/29/23 08:56 History of Present Illness HPI narrative: 57-year-old gentleman with a history of hypertension, type 2 diabetes, COPD, hyperlipidemia, sleep apnea with CPAP use, prior cholecystectomy and significant frustrations with previously missed diagnoses and healthcare providers not listening to his symptoms complaints and requests who presents with a month of severe upper abdominal pain radiating into the left posterior ribs. It is intermittently present at its worst is a 10/10 and can resolve completely. It does not seem to be related to position, movement, exertion, eating, fasting. Not associated with fevers, cough, chills. He has chronic diarrhea secondary to his prior cholecystectomy. He states that his gallbladder colic pain was very similar to this. Related Data Home Medications Medication Instructions Recorded Confirmed ibuprofen 200 mg tablet (Advil) 600 mg PO BID pain 05/14/22 09/25/22 loratadine-pseudoephedrine ER 10 1 tab PO DAILY 05/14/22 09/25/22 mg-240 mg tablet,extended [id number] (Claritin-D 24 Hour) metformin 500 mg tablet,extended 1,000 mg PO BID 05/14/22 09/25/22 release 24 hr sodium chloride 0.65 % nasal mist 2 spray intranasal BEDTIME 05/14/22 09/25/22 Previous Rx's Medication Instructions Recorded acetaminophen 500 mg capsule 500 mg PO Q6H PRN Pain (Scale 09/26/22 Score 4-6) #30 caps omeprazole 40 mg capsule,delayed 40 mg PO DAILY #30 caps 08/29/23 release Allergies Allergy/AdvReac Type Severity Reaction Status Date / Time aspirin Allergy Severe Anaphylaxis Verified 08/29/23 09:23 Iodinated Contrast Media Allergy Severe Fever Verified 08/29/23 09:23 Beef Containing Products Allergy Verified 08/29/23 09:23 tetanus and diphtheria AdvReac Severe Fever Verified 08/29/23 09:23 toxoids Review of Systems Review of Systems Narrative: Pertinent positive and negative findings as per HPI Patient History Medical History Asthma COPD (chronic obstructive pulmonary disease) COVID-19 virus infection (01/02/22) Depression Diabetes Elevated cholesterol Gallbladder disease Giant cell arteritis Hx of migraine headaches MITCHELL on CPAP Pneumonia Sinus drainage Surgical History H/O vasectomy (2005) Social History household members: spouse, family and children Smoking Status: Never smoker alcohol intake: never Smoking Status: Never smoker alcohol intake frequency: holidays/special occasions only Substance Use Type: does not use Exam Narrative Exam Narrative: General: Healthy appearing, in no acute distress. Able to give a complete and coherent history. Well-nourished well-developed HEENT: Moist mucous membranes, normal sclera with reactive pupils, Respiratory: Lungs are clear to auscultation, no wheezing no rales no rhonchi. Full and symmetrical air movement Cardiac: Regular rate and rhythm no murmurs no bruits Abdomen: Soft, minor tenderness in the left upper quadrant, good bowel tones, no flank pain Skin: Warm and dry, no rashes Neurologic: Grossly neurologically intact with no obvious asymmetries or abnormalities Extremities: No trauma, well perfused Psych: Cooperative, appropriate insight and affect Initial Vital Signs Initial Vital Signs: Vital Signs Pulse Rate 62 08/29/23 08:41 Pulse Oximetry 96 08/29/23 08:41 Course Orders Ordered: ED Orders 08/29/23 09:15 CT abdomen pelvis wo con Stat 08/29/23 09:17 EKG-12 Lead Stat 08/29/23 09:35 Complete Blood Count AUTO DIFF Stat Comprehensive Metabolic Panel Stat Lipase Stat Troponin I Stat Hydromorphone HCl (Hydromorphone 0.5 Mg Inj) 0.5 mg IV Q15MIN PRN PRN Reason: Pain, Vital Signs Vital signs: Vital Signs - 8 hr 08/29/23 08:41 08/29/23 08:42 08/29/23 08:42 Temperature Pulse Rate 62 57 L Respiratory Rate Blood Pressure 145/70 H Pulse Oximetry 96 99 Oxygen Delivery Method 08/29/23 09:00 08/29/23 09:00 08/29/23 09:05 Temperature 97.6 F Pulse Rate 61 56 L Respiratory Rate 18 Blood Pressure 191/91 H 145/70 H Pulse Oximetry 97 96 Oxygen Delivery Method Room Air 08/29/23 09:24 08/29/23 09:24 08/29/23 09:30 Temperature Pulse Rate 70 59 L Respiratory Rate Blood Pressure 160/85 H Pulse Oximetry 98 99 Oxygen Delivery Method 08/29/23 10:00 Temperature Pulse Rate 64 Respiratory Rate Blood Pressure Pulse Oximetry 95 Oxygen Delivery Method Medical Decision Making Lab Data 08/29/23 09:35 08/29/23 09:35 Labs: Lab Results 08/29/23 Range/Units 09:35 WBC 5.6 (4.5-11.0) X10^3/uL RBC 4.77 (4.5-5.9) X10^6/uL Hgb 14.3 (13.5-17.5) g/dL Hct 41.2 (41-53) % MCV 86.2 (80-100) fL MCH 29.9 (26-34) PG MCHC 34.7 (30-36) % RDW 13.5 (11.6-14.8) % Plt Count 169 (150-400) X10^3/uL Neut % (Auto) 59.7 (50-75) % Lymph % (Auto) 27.9 (25-40) % [place] % (Auto) 8.1 (3-14) % Eos % (Auto) 3.2 (2-4) % Baso % (Auto) 1.1 (0-2) % Neut # (Auto) 3300 (6528-5062) /uL Lymph # (Auto) 1600 (9553-2351) /uL [place] # (Auto) 500 (0-900) /uL Eos # (Auto) 200 (0-450) /uL Baso # (Auto) 100 (0-100) /uL Sodium 137 (137-145) mmol/L Potassium 4.5 (3.4-5.1) mmol/L Chloride 104 (98-107) mmol/L Carbon Dioxide 25 (22-32) mmol/L BUN 14 (9-20) mg/dL Creatinine 0.87 (0.66-1.25) mg/dL Estimated GFR > 60 (>60) mL/min BUN/Creatinine Ratio 16.1 (6-22) Glucose 125 H (70-100) mg/dL Calcium 9.9 (8.4-10.2) mg/dL Total Bilirubin 1.2 (0.2-1.3) mg/dL AST 31 (17-59) IU/L ALT 29 (<50) IU/L Alkaline Phosphatase 48 (38-126) U/L Troponin I < 0.012 (0.01-0.034) ng/mL Total Protein 7.4 (6.3-8.2) g/dL Albumin 4.5 (3.5-5.0) g/dL Globulin 2.9 (1.7-4.1) g/dL Albumin/Globulin Ratio 1.6 (1.0-2.8) Lipase 285 (23-300) U/L Imaging Data CT scan - abdomen/pelvis: Radiologist's Impression: FINDINGS: Image quality: Diagnostic. Lower Chest: No significant findings. Small hiatal hernia. Heart size is normal. There is mild coronary artery calcification. URINARY: Right Kidney: No stones or hydronephrosis. Right Ureter: No hydroureter. Left Kidney: No stones or hydronephrosis. Left Ureter: No hydroureter. Bladder: Normal wall thickness. No stones. ABDOMEN: Liver: No contour-deforming solid mass. Mild hepatomegaly and hepatic steatosis. Gallbladder: Surgically removed. Biliary ducts: No biliary dilation. Pancreas: No ductal dilation. Spleen: Size is within normal limits. Adrenal Glands: No adrenal nodules. Stomach and Bowel: Normal small bowel and colonic caliber, without significant wall thickening. Diverticulosis without acute diverticulitis. Normal appendix. Peritoneum: No abnormal intraperitoneal fluid. No free air. Ventral Wall: There is a small fat containing umbilical hernia. Abdominal Nodes: No enlarged retroperitoneal or mesenteric lymph nodes. Vessels: Aorta and inferior vena cava are normal in size. PELVIS: Pelvic Organs: Unremarkable. Pelvic Nodes: Unremarkable. Miscellaneous: Small fat containing left inguinal hernia is seen. Bones: Unremarkable. IMPRESSION: 1. No renal stone or hydronephrosis. 2. Diverticulosis without diverticulitis. 3. Mild hepatomegaly and hepatic steatosis. Dictated by: Derrick Hernandez M.D. on 08/29/2023 at 9:46 MDM Narrative Medical decision making narrative: CC: Left posterior lung chest pain/left upper quadrant abdominal pain Complicating co-morbidities: Hypertension, diabetes, hyperlipidemia Data collected from: patient Social determinants of health that may influence the patients condition: Prior adverse effects and interactions with the healthcare system Medical records reviewed: Previous visits regarding his prior cholecystectomy and recent hospital admission for hypertensive crisis reviewed Differential considered: Left lower lobe pneumonia, cardiac etiology, pancreatitis, gastric ulcer, pancreatic mass Exam documented above, pertinent findings include: Patient is alert and appropriate. Has some minor tenderness with left upper quadrant palpation. No rebound or guarding. No lung findings. Lab Test results independently reviewed as above. Pertinent findings: CBC is unremarkable Chemistries are reassuring Troponin is undetected Lipase is normal at 285 Independently reviewed EKG: Sinus rhythm at a rate of 59 normal intervals, normal axis, no acute ischemic changes Imaging studies independently reviewed: CT scan shows no acute abnormalities to explain his upper abdominal left posterior chest pain. There is no pancreatic abnormality no renal stones, no infection. He does have mild hepatomegaly. Discussion: 57-year-old gentleman with a month of pain in the left posterior rib area that he feels his radiating from his upper abdomen. CT scan does not suggest pancreatitis or pancreatic mass. He may well have some gastritis causing his issue. At this point there is no evidence of lower lung masses or other intra-abdominal abnormalities that would be causing his pain. There is no rib fractures no evidence of trauma no new compression fractures. Findings and lab work reviewed with the patient. He is still somewhat frustrated that we do not have an answer for him but also reassured that the significant abnormalities that could have been identified have been ruled out. We talked about Ozempic as a cause for abdominal pain acute prefer to not change this time. Talked about using a proton pump inhibitor to see if reducing acid levels in his stomach might help influence pain. He was not particularly interested in trying that. Given a copy of labs and CT scan to follow up with his primary doctor and is safe for discharge at this time Discharge Plan Departure Patient Disposition: Home Clinical Impression: Acute upper abdominal pain Instructions: DI for Gastritis Activity Restrictions/Additional Instructions: Thank you for coming in today Your blood work was very reassuring. I saw no evidence for liver problems, kidney problems, acute infection, heart attack or heart attack like syndromes. You do not have pancreatitis and the CT scan did not suggest any masses in pancreas nor dilated ducts throughout the liver or pancreas. At this time, there does not appear to be a life-threatening cause for your pain. Unfortunately, sometimes the best that we are able to do in the emergency department as tell you all of the things that you do not have. I have given you copies of your blood work and CT scan results and would recommend follow up with your primary doctor to discuss steps and figuring out what you do have. At this point I do not think that this is musculoskeletal but it may be related to stomach irritation that is radiating from the back of the stomach out toward the back of your ribs. If you would like to try omeprazole, a stomach acid medicine, I would recommend at least a 14 day trial to see if reducing the acid in your stomach, can aid in healing the stomach lining and seeing if this influences your pain. I have given you a written prescription should you decide to fill this. If you find that you are getting worse or develop any new symptoms, please feel free to return to the emergency department for further evaluation. Prescriptions: New omeprazole 40 mg capsule,delayed release(DR/EC) 40 mg PO DAILY Qty: 30 0RF No Action metformin 500 mg tablet extended release 24 hr 1,000 mg PO BID Patient Comments: TAKE 2 TABLETS BY MOUTH TWICE DAILY Rx Instructions: 2 tabs bid sodium chloride 0.65 % Mist 2 spray INTRANASAL BEDTIME Patient Comments: one spray per nostril Claritin-D 24 Hour 10-240 mg Tablet Extended Release 24 Hr 1 tab PO DAILY ibuprofen [Advil] 200 mg Tablet 600 mg PO BID acetaminophen 500 mg Capsule 500 mg PO Q6H PRN (Reason: Pain (Scale Score 4-6)) Qty: 30 0RF Referrals: Luis Bustos PA-C [Primary Care Provider] - Stand Alone Forms: Patient Portal/API
--- NOTE | 2023-08-29 09:15 | DI.CT.S_ITS ---
PROCEDURE: CT ABDOMEN PELVIS WO CON INDICATIONS: upper abd pain radiating to back X 1 month TECHNIQUE: Axial sections were acquired from the lung bases to the pubic symphysis. Coronal and sagittal reformats were performed. For radiation dose reduction, the following was used: automated exposure control, adjustment of mA and/or kV according to patient size. COMPARISON: [facility], CT, CT ABDOMEN PELVIS WO CON, 06/22/2021, 11:50. MR, MR ABDOMEN WO/W CON, 09/25/2022, 10:21. [facility], CT, CT ABDOMEN PELVIS WO CON, 04/08/2022, 6:59. FINDINGS: Image quality: Diagnostic. Lower Chest: No significant findings. Small hiatal hernia. Heart size is normal. There is mild coronary artery calcification. URINARY: Right Kidney: No stones or hydronephrosis. Right Ureter: No hydroureter. Left Kidney: No stones or hydronephrosis. Left Ureter: No hydroureter. Bladder: Normal wall thickness. No stones. ABDOMEN: Liver: No contour-deforming solid mass. Mild hepatomegaly and hepatic steatosis. Gallbladder: Surgically removed. Biliary ducts: No biliary dilation. Pancreas: No ductal dilation. Spleen: Size is within normal limits. Adrenal Glands: No adrenal nodules. Stomach and Bowel: Normal small bowel and colonic caliber, without significant wall thickening. Diverticulosis without acute diverticulitis. Normal appendix. Peritoneum: No abnormal intraperitoneal fluid. No free air. Ventral Wall: There is a small fat containing umbilical hernia. Abdominal Nodes: No enlarged retroperitoneal or mesenteric lymph nodes. Vessels: Aorta and inferior vena cava are normal in size. PELVIS: Pelvic Organs: Unremarkable. Pelvic Nodes: Unremarkable. Miscellaneous: Small fat containing left inguinal hernia is seen. Bones: Unremarkable. IMPRESSION: 1. No renal stone or hydronephrosis. 2. Diverticulosis without diverticulitis. 3. Mild hepatomegaly and hepatic steatosis. Dictated by: Derrick Hernandez M.D. on 08/29/2023 at 9:46 Approved by: Derrick Hernandez M.D. on 08/29/2023 at 9:53
[2023-08-29 09:41] LABS: Add Manual Diff / Slide Review NO; Basophils Absolute Auto 100 /uL (0-100); Basophils Percent Auto 1.1 % (0-2); Eosinophils Absolute Auto 200 /uL (0-450); Eosinophils Percent Auto 3.2 % (2-4); Hematocrit 41.2 % (41-53); Hemoglobin 14.3 g/dL (13.5-17.5); Lymphocytes Absolute Auto 1600 /uL (1100-4500); Lymphocytes Percent Auto 27.9 % (25-40); Mean Corpuscular HGB Conc 34.7 % (30-36); Mean Corpuscular Hemoglobin 29.9 PG (26-34); Mean Corpuscular Volume 86.2 fL (80-100); Monocytes Absolute Auto 500 /uL (0-900); Monocytes Percent Auto 8.1 % (3-14); Neutrophils Absolute Auto 3300 /uL (1500-7000); Neutrophils Percent Auto 59.7 % (50-75); Platelet Count 169 X10^3/uL (150-400); Red Blood Cell Count 4.77 X10^6/uL (4.5-5.9); Red Cell Distribution Width 13.5 % (11.6-14.8); White Blood Cell Count 5.6 X10^3/uL (4.5-11.0)
[2023-08-29 09:55] LABS: Alanine Aminotransferase 29 IU/L (<50); Albumin 4.5 g/dL (3.5-5.0); Albumin Globulin Ratio 1.6 (1.0-2.8); Alkaline Phosphatase 48 U/L (38-126); Aspartate Aminotransferase 31 IU/L (17-59); BUN Creatinine Ratio 16.1 (6-22); Bilirubin Total 1.2 mg/dL (0.2-1.3); Blood Urea Nitrogen 14 mg/dL (9-20); Calcium 9.9 mg/dL (8.4-10.2); Carbon Dioxide 25 mmol/L (22-32); Chloride 104 mmol/L (98-107); Estimated Glomerular Filt Rate > 60 mL/min (>60); Globulin 2.9 g/dL (1.7-4.1); Glucose 125 mg/dL (70-100); HEMOLYSIS < 15 (0-50); Lipase 285 U/L (23-300); Potassium 4.5 mmol/L (3.4-5.1); Sodium 137 mmol/L (137-145); Total Protein 7.4 g/dL (6.3-8.2)
[2023-08-29 10:06] LABS: Troponin I < 0.012 ng/mL (0.01-0.034)
--- NOTE | 2023-08-29 10:35 | PC.NURSE ---
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
== END 2023-08-29 11:55 | disposition home or self-care (01) ==
PROVIDERS: Emergency Provider Emergency Medicine; PCP Physician Assistant
DX: R10.10 Upper abdominal pain, unspecified (principal); R07.81 Pleurodynia; M54.50 Low back pain, unspecified
CPT/HCPCS: 36415; 74176; 80053; 83690; 84484; 85025; 93005; 99284

== ENCOUNTER 2024-11-21 09:18 | Emergency (ER) | payer OTHER, SELFPAY ==
[2022-09-25 14:03] VITALS: BMI 35.3
[2024-11-21 09:35] VITALS: BP 150/75; PULSE 67; RESP 16; TEMP 36.4; O2SAT 97; BMI 34.7
--- NOTE | 2024-11-21 10:24 | EKG_ITS ---
[address] [address] Test Date: 2024-11-21 Pat Name: Jean Mendez Department: [facility] Room: Gender: Male Chief Service Dispatcher: ISHMAEL : 1965 Requested By: Order Number: [id number] Reading MD: Genaro Calderon MD Measurements Intervals [place] Rate: 61 P: 7 [place]: 156 QRS: -2 QRSD: 88 T: 20 QT: 398 QTc: 400 Interpretive Statements Normal sinus rhythm Inferior infarct , age undetermined Electronically Signed On 11-21-2024 15:03:58 PDT by Genaro Calderon MD
[2024-11-21 11:05] LABS: Ictotest Urine Negative (Negative)
[2024-11-21 11:36] LABS: Add Manual Diff / Slide Review NO; Basophils Absolute Auto 100 /uL (0-100); Basophils Percent Auto 0.8 % (0-2); Eosinophils Absolute Auto 200 /uL (0-450); Eosinophils Percent Auto 2.4 % (2-4); Hemoglobin 14.4 g/dL (13.5-17.5); Lymphocytes Absolute Auto 1900 /uL (1100-4500); Lymphocytes Percent Auto 25.4 % (25-40); Mean Corpuscular HGB Conc 34.3 % (30-36); Mean Corpuscular Hemoglobin 29.6 PG (26-34); Mean Corpuscular Volume 86.3 fL (80-100); Monocytes Absolute Auto 600 /uL (0-900); Monocytes Percent Auto 8.2 % (3-14); Neutrophils Absolute Auto 4800 /uL (1500-7000); Neutrophils Percent Auto 63.2 % (50-75); Platelet Count 186 X10^3/uL (150-400); Red Blood Cell Count 4.86 X10^6/uL (4.5-5.9); Red Cell Distribution Width 13.3 % (11.6-14.8); White Blood Cell Count 7.5 X10^3/uL (4.5-11.0)
[2024-11-21 11:45] LABS: Alanine Aminotransferase 45 IU/L (<50); Albumin 4.7 g/dL (3.5-5.0); Albumin Globulin Ratio 1.7 (1.0-2.8); Alkaline Phosphatase 59 U/L (38-126); Aspartate Aminotransferase 37 IU/L (17-59); Bilirubin Total 1.3 mg/dL (0.2-1.3); Blood Urea Nitrogen 15 mg/dL (9-20); Calcium 9.7 mg/dL (8.4-10.2); Carbon Dioxide 22 mmol/L (22-32); Chloride 104 mmol/L (98-107); Estimated Glomerular Filt Rate > 60 mL/min (>60); Globulin 2.7 g/dL (1.7-4.1); Glucose 139 mg/dL (70-100); HEMOLYSIS < 15 (0-50); Lipase 703 U/L (23-300); Potassium 4.7 mmol/L (3.4-5.1); Sodium 136 mmol/L (137-145); Total Protein 7.4 g/dL (6.3-8.2)
--- NOTE | 2024-11-21 12:18 | DI.CT.S_ITS ---
PROCEDURE: CT ABDOMEN PELVIS WO CON INDICATIONS: Abdominal pain, hx pancreatitis TECHNIQUE: Axial sections were acquired from the lung bases to the pubic symphysis. Coronal and sagittal reformats were performed. For radiation dose reduction, the following was used: automated exposure control, adjustment of mA and/or kV according to patient size. COMPARISON: CT abdomen pelvis without contrast 08/29/2023 (report only ; unsuccessful image retrieval) FINDINGS: Image quality: Diagnostic. Please note evaluation is limited in the absence of intravenous contrast. Peritoneum: No pneumoperitoneum or ascites. Bones: No acute osseous abnormality. Lower Chest: No acute abnormality. Liver: Hepatomegaly up to 22.1 cm in the craniocaudal dimension (4/61). Hepatic steatosis. Gallbladder: Surgically absent. Biliary tree: No intrahepatic or extrahepatic biliary ductal dilatation. Pancreas: Within normal limits. No peripancreatic fluid collection. Spleen: Normal in size and contour. Kidneys: No hydronephrosis or obstructive urolithiasis. Adrenals: No adrenal nodularity. Bladder: Normal in size and wall thickness. : No acute abnormality. Stomach: Normal in size and contour. Bowel: Normal in diameter without any bowel obstruction. Appendix within normal limits (2/100). Scattered colonic diverticulosis. Lymph Nodes: Minimal haziness of the central mesentery with nonenlarged superior mesenteric nodes (4/48; 2/57). No retroperitoneal, mesenteric, or inguinal lymphadenopathy. Vascular: No abdominal aortic aneurysm. Mild aortoiliac atherosclerosis. Soft Tissues: No acute abnormality. IMPRESSION: 1. Hepatomegaly with hepatic steatosis. 2. No non-contrast evidence of acute pancreatitis or drainable fluid collection. 3. Minimal haziness of the central mesentery with nonenlarged mesenteric lymph nodes, which is a nonspecific finding and can be seen with sclerosing mesenteritis among other etiologies. Dictated by: Allan Bee M.D. on 11/21/2024 at 12:39 Approved by: Allan Bee M.D. on 11/21/2024 at 12:45
[2024-11-21 13:18] VITALS: BP 150/77; PULSE 60; RESP 16; O2SAT 97
--- NOTE | 2024-11-21 13:46 | ED.BACK ---
HPI - Back Pain/Injury General Chief Complaint: Back Pain/Injury Stated Complaint: LT side back pain after px change Time Seen by Provider: 11/21/24 12:18 History of Present Illness HPI Narrative: 59-year-old male with history of remote cholecystectomy, prior pancreatitis in context of gallstones, history of diabetes, obesity for which he recently increased his dose of Ozempic weekly from 1 mg to 2 mg. Complains of left-sided back pain today. No trauma or injury. No fevers or chills. No cough or shortness of breath. No painful urination or frequency of urination. No skin changes or rashes. Pain might be a little bit better with ibuprofen, more so than Tylenol. No black or red stools or recent loose stools. Related Data Home Medications Medication Instructions Recorded Confirmed ibuprofen 200 mg tablet (Advil) 600 mg PO BID pain 05/14/22 09/25/22 loratadine-pseudoephedrine ER 10 1 tab PO DAILY 05/14/22 09/25/22 mg-240 mg tablet,extended [id number] (Claritin-D 24 Hour) metformin 500 mg tablet,extended 1,000 mg PO BID 05/14/22 09/25/22 release 24 hr sodium chloride 0.65 % nasal mist 2 spray intranasal BEDTIME 05/14/22 09/25/22 Previous Rx's Medication Instructions Recorded acetaminophen 500 mg capsule 500 mg PO Q6H PRN Pain (Scale 09/26/22 Score 4-6) #30 caps omeprazole 40 mg capsule,delayed 40 mg PO DAILY #30 caps 08/29/23 release Allergies Allergy/AdvReac Type Severity Reaction Status Date / Time aspirin Allergy Severe Anaphylaxis Verified 08/29/23 09:23 Iodinated Contrast Media Allergy Severe Fever Verified 08/29/23 09:23 Beef Containing Products Allergy Verified 08/29/23 09:23 tetanus and diphtheria AdvReac Severe Fever Verified 08/29/23 09:23 toxoids Patient History Medical History Asthma COPD (chronic obstructive pulmonary disease) COVID-19 virus infection (01/02/22) Depression Diabetes Elevated cholesterol Gallbladder disease Giant cell arteritis Hx of migraine headaches MITCHELL on CPAP Pneumonia Sinus drainage Surgical History H/O vasectomy (2004) Social History household members: spouse, family and children Smoking Status: Never smoker alcohol intake: never Smoking Status: Never smoker alcohol intake frequency: holidays/special occasions only Exam Narrative Exam Narrative: GENERAL: Well-developed patient, in mild distress. HEAD: Atraumatic. Normocephalic. EYES: Pupils equal round and reactive. Extraocular motions intact. No scleral icterus. No injection or drainage. ENT: Nose without bleeding, purulent drainage. Throat without erythema, tonsillar hypertrophy or exudate. Airway patent. NECK: Trachea midline. Non tender CARDIOVASCULAR: Regular rate and rhythm without murmurs, gallops, or rubs. RESPIRATORY: Clear to auscultation. Breath sounds equal bilaterally. No wheezes, rales, or rhonchi. GASTROINTESTINAL: Abdomen nondistended, without discrete areas of tenderness. EXTREMITIES: No edema or joint tenderness. BACK: Nontender without deformity or crepitance. No flank tenderness. No skin changes or abrasions, no rash or vesicles. NEURO: AOx3. Motor functions grossly nonfocal SKIN: No rash or erythema of visible areas Initial Vital Signs Initial Vital Signs: Vital Signs Temperature 97.5 F L 11/21/24 09:35 Pulse Rate 67 11/21/24 09:35 Respiratory Rate 16 11/21/24 09:35 Blood Pressure 150/75 H 11/21/24 09:35 Pulse Oximetry 97 11/21/24 09:35 Oxygen Delivery Method Room Air 11/21/24 09:35 Course Orders Ordered: ED Orders 11/21/24 12:18 CT abdomen pelvis wo con Stat Discontinued Medications Ondansetron HCl (Ondansetron 4 Mg/2 Ml Inj) 4 mg IV NOW PRN PRN Reason: Nausea And Vomiting Ondansetron HCl (Ondansetron 4 Mg Odt) 4 mg PO NOW PRN PRN Reason: Nausea And Vomiting Vital Signs Vital signs: Vital Signs - 8 hr 11/21/24 13:18 11/21/24 15:37 Pulse Rate 60 80 Respiratory Rate 16 16 Blood Pressure 150/77 H 150/80 H Pulse Oximetry 97 97 Oxygen Delivery Method Room Air MDM - Back Pain/Injury Lab Data Attestation: I reviewed the patient's lab results. Lab results narrative: White blood cell count 7500, hemoglobin 14.4, platelets 186. Glucose 139. BUN 15 with creatinine 1.0, electrolytes unremarkable, serum CO2 normal. Liver functions normal. Lipase slight elevation 700 noted. Urine dip negative. 11/21/24 11:20 11/21/24 11:20 Labs: Lab Results 11/21/24 11/21/24 Range/Units 09:41 11:20 WBC 7.5 (4.5-11.0) X10^3/uL RBC 4.86 (4.5-5.9) X10^6/uL Hgb 14.4 (13.5-17.5) g/dL Hct 42.0 (41-53) % MCV 86.3 (80-100) fL MCH 29.6 (26-34) PG MCHC 34.3 (30-36) % RDW 13.3 (11.6-14.8) % Plt Count 186 (150-400) X10^3/uL Neut % (Auto) 63.2 (50-75) % Lymph % (Auto) 25.4 (25-40) % [place] % (Auto) 8.2 (3-14) % Eos % (Auto) 2.4 (2-4) % Baso % (Auto) 0.8 (0-2) % Neut # (Auto) 4800 (3570-1922) /uL Lymph # (Auto) 1900 (6752-3758) /uL [place] # (Auto) 600 (0-900) /uL Eos # (Auto) 200 (0-450) /uL Baso # (Auto) 100 (0-100) /uL Sodium 136 L (137-145) mmol/L Potassium 4.7 (3.4-5.1) mmol/L Chloride 104 (98-107) mmol/L Carbon Dioxide 22 (22-32) mmol/L BUN 15 (9-20) mg/dL Creatinine 1.00 (0.66-1.25) mg/dL Estimated GFR > 60 (>60) mL/min BUN/Creatinine Ratio 15.0 (6-22) Glucose 139 H (70-100) mg/dL Calcium 9.7 (8.4-10.2) mg/dL Total Bilirubin 1.3 (0.2-1.3) mg/dL AST 37 (17-59) IU/L ALT 45 (<50) IU/L Alkaline Phosphatase 59 (38-126) U/L Total Protein 7.4 (6.3-8.2) g/dL Albumin 4.7 (3.5-5.0) g/dL Globulin 2.7 (1.7-4.1) g/dL Albumin/Globulin Ratio 1.7 (1.0-2.8) Lipase 703 H (23-300) U/L Ur Bilirubin Confirm Negative (Negative) Urine Dip Bedside Urine Glucose Negative Bedside Urine Bilirubin + 1 Bedside Urine Ketone - Negative Urine Specific [place] 1.025 Bedside Urine Occult Blood - Negative Bedside Urine pH 6.0 Bedside Urine Protein - Negative Bedside Urine Urobilinogen - Negative Bedside Urine Nitrite - Negative Bedside Urine Leukocytes - Negative Esterase Imaging Data CT scan - abdomen/pelvis: Radiologist's Impression: Close Abdomen/Pelvis CT (Signed) Allan Bee - 11/21/24 [place] [address] CT Scan Report Signed Patient: Jean Mendez MR#: [id number] : 1965 Acct:[id number] Age/Sex: 59 / M Date of Service: 11/21/24 Loc: ED Accession Number: [id number] Procedure: CT abdomen pelvis wo con Ordering Provider: Anthony Meng MD PROCEDURE: CT ABDOMEN PELVIS WO CON INDICATIONS: Abdominal pain, hx pancreatitis TECHNIQUE: Axial sections were acquired from the lung bases to the pubic symphysis. Coronal and sagittal reformats were performed. For radiation dose reduction, the following was used: automated exposure control, adjustment of mA and/or kV according to patient size. COMPARISON: CT abdomen pelvis without contrast 08/29/2023 (report only ; unsuccessful image retrieval) FINDINGS: Image quality: Diagnostic. Please note evaluation is limited in the absence of intravenous contrast. Peritoneum: No pneumoperitoneum or ascites. Bones: No acute osseous abnormality. Lower Chest: No acute abnormality. Liver: Hepatomegaly up to 22.1 cm in the craniocaudal dimension (). Hepatic steatosis. Gallbladder: Surgically absent. Biliary tree: No intrahepatic or extrahepatic biliary ductal dilatation. Pancreas: Within normal limits. No peripancreatic fluid collection. Spleen: Normal in size and contour. Kidneys: No hydronephrosis or obstructive urolithiasis. Adrenals: No adrenal nodularity. Bladder: Normal in size and wall thickness. : No acute abnormality. Stomach: Normal in size and contour. Bowel: Normal in diameter without any bowel obstruction. Appendix within normal limits (2/100). Scattered colonic diverticulosis. Lymph Nodes: Minimal haziness of the central mesentery with nonenlarged superior mesenteric nodes (4/48; 2/57). No retroperitoneal, mesenteric, or inguinal lymphadenopathy. Vascular: No abdominal aortic aneurysm. Mild aortoiliac atherosclerosis. Soft Tissues: No acute abnormality. IMPRESSION: 1. Hepatomegaly with hepatic steatosis. 2. No non-contrast evidence of acute pancreatitis or drainable fluid collection. 3. Minimal haziness of the central mesentery with nonenlarged mesenteric lymph nodes, which is a nonspecific finding and can be seen with sclerosing mesenteritis among other etiologies. Dictated by: Allan Bee M.D. on 11/21/2024 at 12:39 Approved by: Allan Bee M.D. on 11/21/2024 at 12:45 ECG Data Attestation: I personally reviewed and interpreted this ECG as follows: Interpretation: Normal sinus rhythm with a rate of 61, no obvious ST segment elevation or depression changes. Flat T-waves lead 3 but upright in leads 2 and F. WA 156, QRS 88, QTC 400. MDM Narrative Medical decision making narrative: 59-year-old male with history of diabetes and obesity, remote cholecystectomy, gallbladder related pancreatitis event in the past, has nontraumatic left flank area discomfort of unclear etiology. No fever, sirs screen negative. No tenderness on examination. Lungs clear. Screening blood test did not show leukocytosis, normal liver functions noted, but has slight elevation in lipase. CT abdomen and pelvis ordered. CT abdomen and pelvis. Impressions: ?hepatomegaly with hepatic steatosis. No noncontrast evidence of acute pancreatitis were drainable fluid collection. Minimal haziness of the central mesentery with nonenlarged mesenteric lymph nodes, which is a nonspecific finding can be seen with sclerosing mesenteritis among other etiology. ? See radiology report. Case discussed with surgery on-call Dr. Khanna, who reviewed study, believes also this is nonspecific, but is somewhat posterior in location, could be related to his discomfort. Often this is due to a viral illness, does not require any antibiotics. Consider NSAIDs. Recheck if symptoms progress, otherwise advised outpatient follow up. Unclear if this could be due to recent increased dose of Ozempic. Could consider discontinuation of the Ozempic or reduction of the dose to previous dose, in trial of increased dose at some interval weeks in the future. Surgery consult information relayed to the patient, with copy of CT scan report and discussion. Use [id number] anti-inflammatory pain medications as needed. Recheck advised with your regular provider if not improved in the next couple of days. Return precautions discussed. Discharge Plan Departure Patient Disposition: Home Clinical Impression: Abdominal pain, Mesenteric adenitis Instructions: DI for Abdominal Pain-Adult Activity Restrictions/Additional Instructions: History of remote gallbladder surgery with associated pancreatitis at that time, history of diabetes, history of obesity on weight lost Ozempic regimen, recently increasing your dose from 1 mg to 2 mg. Now with left-sided flank area pain of unclear cause. No fever. Serum blood tests unremarkable except for slight elevation lipase 700. CT scan did not show evidence of pancreatitis at this time, but did show central mesenteric haziness of unclear cause. Case discussed with general surgery Dr. Khanna who felt this is likely viral associated, but inflamed lymph nodes could be the reason for your posterior back area flank area discomfort. This does not require antibiotics. This is not require surgical removal. This is not consistent with known obvious cancerous process. Unclear association or cause. Could be viral illness. Unclear if this has any relationship to your increase Ozempic dose, although it seems reasonable to reduce the dose of your Ozempic back to 1 mg weekly for a number of weeks, and to retry increased dose to see if this pain happens again. This could be some other process not related to Ozempic at all, viral in etiology versus some other etiology, does not finding any objective findings on CT scanning at this time to make the diagnosis. Outpatient evaluation for now with close follow up advised by General surgery. Take [id number] ibuprofen as needed for discomfort. Recheck with your regular doctor in the next couple of days. Return to this/nearest emergency department for any change worsening symptoms or any concerns prior. Prescriptions: No Action metformin 500 mg tablet extended release 24 hr 1,000 mg PO BID Patient Comments: TAKE 2 TABLETS BY MOUTH TWICE DAILY Rx Instructions: 2 tabs bid sodium chloride 0.65 % Mist 2 spray INTRANASAL BEDTIME Patient Comments: one spray per nostril Claritin-D 24 Hour 10-240 mg Tablet Extended Release 24 Hr 1 tab PO DAILY ibuprofen [Advil] 200 mg Tablet 600 mg PO BID acetaminophen 500 mg Capsule 500 mg PO Q6H PRN (Reason: Pain (Scale Score 4-6)) Qty: 30 0RF omeprazole 40 mg capsule,delayed release(DR/EC) 40 mg PO DAILY Qty: 30 0RF Referrals: Luis Bustos PA-C [Primary Care Provider] - Stand Alone Forms: Patient Portal/API/Survey
[2024-11-21 15:37] VITALS: BP 150/80; PULSE 80; RESP 16; O2SAT 97
== END 2024-11-21 15:37 | disposition home or self-care (01) ==
PROVIDERS: Emergency Provider Emergency Medicine; PCP Physician Assistant
DX: I88.0 Nonspecific mesenteric lymphadenitis (principal); R10.9 Unspecified abdominal pain
CPT/HCPCS: 36415; 74176; 80053; 81003; 83690; 85025; 93005; 93010; 99282; 99284